=== PATIENT | male | born 1950 | race Caucasian/White ===

== ENCOUNTER 2023-06-27 09:17 | Inpatient (IN) | payer MEDICARE, OTHER, SELFPAY ==
[2023-06-25 17:21] VITALS: BP 173/83
[2023-06-25 17:24] LABS: Glucose - Point of Care 100 mg/dl (70-99)
[2023-06-25 17:33] VITALS: BMI 38.8
[2023-06-25 17:35] VITALS: BP 176/82
[2023-06-25 18:02] LABS: % Basophils 0.9 % (0-2); % Eosinophils 6.2 % (0-6); % Immature Granulocytes 0.4 % (0-0.5); % Lymphocytes 19.9 % (20.5-51.1); % Monocytes 8.6 % (1.7-9.3); Absolute Basophils 0.1 10^3/uL (0-0.2); Absolute Eosinophils 0.4 10^3/uL (0-0.7); Absolute Lymphocytes 1.1 10^3/uL (1.2-3.4); Absolute Monocytes 0.5 10^3/uL (0.1-0.6); Absolute Neutrophils 3.6 10^3/uL (1.4-6.5); Hematocrit 41.7 % (39.0-52.0); Hemoglobin 14.4 g/dL (13.0-18.0); Mean Corp Hgb Conc. 34.5 g/dL (33.0-37.0); Mean Corpuscular Hgb 32.9 pg (27.0-31.0); Mean Corpuscular Volume 95.2 fL (80.0-94.0); Mean Platelet Volume 10.9 fL (7.4-10.4); Nucleated Red Blood Cells % 0 % (-); Platelet Count 161 10^3/uL (130-400); Red Blood Cell Count 4.38 10^6/uL (4.70-6.10); Red Cell Dist. Width 13.2 % (11.5-14.5); White Blood Cell Count 5.7 10^3/uL (4.8-10.8)
[2023-06-25 18:11] VITALS: BP 155/97
--- NOTE | 2023-06-25 18:16 | ED.CVA ---
History of Present Illness
General
Chief Complaint: CVA/TIA Symptoms
Source: patient and family
Exam Limitations: none
Time Seen by Provider: 06/25/23 17:31
Nursing documentation reviewed up to this point in time: agreed with
Onset of Stroke Symptoms
Onset of symptoms known: Yes
Date of onset of symptoms: 06/25/23
Time of onset of symptoms: 16:15
Time pt last seen normal is known: Yes
Date last time pt seen normal: 06/25/23
Time last time pt seen normal: 16:00
Travel History
Have you had any contact with someone who has COVID-19?: No
Do you have any symptoms of coronavirus? Fever > 100 degrees, chills, cough, shortness of breath, sore throat, loss of taste or smell, muscle aches, or headache?: No
History of Present Illness
History of Present Illness:
Pleasant 72-year-old male presents with an episode of left arm flailing. He states that he was going for his daily 1 mile walk today when he got 200-300 yards into the walk he met a friend who happened to be a nurse. He states that he stopped to
talk with her and shortly after initiating conversation his left arm started to flail uncontrollably. He states that it lasted for approximately 10 to 30 seconds and he was unable to control it. His nurse friend advised him to go to the hospital
to get checked out. He was able to ambulate all the way home where he found his who took him to the hospital. He typically takes a baby aspirin daily. He got home today and took a second baby aspirin. He states that his only symptoms that
still reside are failure to fully extend his fourth and fifth digits on his left side. He did have some dizziness while the event was going on but states that that has resolved. He denies chest pain or shortness of breath. He is concerned that he
was not hydrated adequately today. He had a couple coffee in the morning and 16 ounces of Diet Coke prior to his walk. He reports no other issues. Denies any cardiac history though was diagnosed with PACs prior to knee surgery 1 year ago. It was
initially thought that he had atrial fibrillation but when he saw a director instructional material they diagnosed him with PACs. He is not on any anticoagulation. 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 He states he has
never had symptoms on the left.
Review of Systems
Review of Systems
Allergies reviewed?: Yes
All Other Systems: ROS reviewed and negative except as documented in HPI and ROS
Constitutional: Reports no symptoms
EENT: Reports no symptoms
Respiratory: Reports no symptoms
Cardiac: Reports no symptoms
ABD/GI: Reports no symptoms
: Reports no symptoms
Musculoskeletal: Reports no symptoms
Skin: Reports no symptoms
Neurological: Reports weakness (left 4th 5th digits)
Endocrine: Reports no symptoms
Hematologic/Lymphatic: Reports no symptoms
Psychiatric: Reports no symptoms
Phy Exam
General Physical Exam
General Presentation: well appearing and no apparent distress
General Skin: warm and dry
General Habitus: normal
General Mental: alert
General Hydration: appears well hydrated
ENT Exam
ENT Exam: EOMI, pharynx normal, neck supple and normocephalic
Eye Exam
Eye Exam: PERRL, cornea clear and conjunctiva normal
Cardiovascular Exam
Cardiovascular Exam: regular rate/rhythm, no edema, no murmur and normal peripheral pulses
Pulmonary Exam
Pulmonary Exam: lungs clear, no respiratory distress, no rales, no crackles, no rhonchi, no stridor, no wheezing and no cough
Gastrointestinal Exam
Gastrointestinal Exam: normal bowel sounds, non tender, soft, no organomegaly, no pulsatile mass and non distended
Neurological Exam
Neurological Exam: alert, oriented x3, no motor deficits and speech normal
NIH Stroke Score
Level of Consciousness: 0 - Alert
LOC questions: 0-Answers both correctly
LOC Commands: 0-Performs both correctly
Best Gaze: 0-Normal
Visual Judd: 0=Normal, no visual loss
Facial palsy: 0=Normal, symmetrical
Motor - Right Arm: 0=No drift 10 seconds
Motor - Left Arm: 0=No drift 10 seconds
Motor - Right Le-No drift 5 seconds
Motor - Left Le-No drift 5 seconds
Limb Ataxia: 0-Absent
Sensation: 0-Normal
Best Language: 0-No aphasia (, present in the room during the exam agrees)
Dysarthria: 0-Normal
Extinction and Inattention: 0-No abnormality
Total Score:: 0
Musculoskeletal Exam
Musculoskeletal Exam: full ROM and no edema
Skin Exam
Skin Exam: normal color, warm/dry, no rash and no petechia
Psychiatric Exam
Psychiatric Exam: normal mood/affect
Course
Orders/Labs/Results
Orders:
Orders
06/25/23 17:26
CT Head W/o Cont STROKE ALERT Urgent
Reason For Exam: L arm weakness
06/25/23 17:53
CMP [Comprehensive Metabolic Panel] Urgent
Complete Blood Count/With Diff Urgent
Magnesium Urgent
Comment: ADD ON
TSH Urgent
Comment: ADD ON
06/25/23 18:27
Aspirin Chewable [Low Strength Aspirin] 162 mg PO NOW STA
Atorvastatin [Lipitor] 10 mg PO NOW STA
Clopidogrel Bisulfate [Plavix] 300 mg PO NOW STA
06/25/23 18:30
Cardiac Monitoring- Treatment ONCE
0.9% Sodium Chloride 1000 ml [Nss] 1,000 ml IV BOLUS
06/25/23 18:31
Electrocardiogram (*1) Stat
Reason for Study: Other
Other Reason for Exam: neuro symptoms
EKG- Treatment ONCE
06/25/23 18:54
Erythrocyte Sed Rate Urgent
PTT Urgent
Prothrombin Time Urgent
Troponin I Urgent
06/25/23 19:30
Admit/Transfer Patient As Directed
Co-Sign Provider:
Level of Care: Observation services
Assign to:: Telemetry
Physician / Group: Yessi/Hospitalist
Diagnosis: TIA vs CVA vs seizure
Reason for Telemetry: CVA/TIA
Date to Stop Telemetry: 06/28/23
Time to Stop Telemetry: 11:00
06/25/23 19:32
Code Status As Directed
Resuscitation Status: Full Code
06/25/23 20:30
Acetaminophen [Tylenol/Feverall] 650 mg RECTAL Q4HPRN PRN
Acetaminophen [Tylenol] 650 mg PO Q4HPRN PRN
06/25/23 20:30
Add On- LAB Routine
Tests Added?: Mg, TSH
EKG [Electrocardiogram (*1)] Routine
Reason for Study: TIA/Stroke
Case Management Consult ONCE
Case Management Consult: Discharge Planning
Comment: stroke/tia
DIETARY CONSULT Routine
Reason for Consult: stroke/TIA
NEUROLOGY CONSULT Urgent
Consulting Provider: Khanh Castro
Was physician already notified: Yes
Reason for consult: TIA vs CVA vs seizure
Biology Tutor Urgent
EEG Routine Routine
Reason for Exam: complex-partial seizures
MA Lummi Of Barone Wo Routine
Comment:
Reason For Exam: stroke/TIA
Recent pill cam endoscopy?: No
MA Neck With Contrast Routine
Comment:
Reason For Exam: stroke/TIA
Recent pill cam endoscopy?: No
MR Brain Without Contrast Routine
Comment:
Reason For Exam: stroke/TIA
Recent pill cam endoscopy?: No
Activity As Directed
Activity Level: With Assistance
NIH Stroke Scale As Directed
Directions: Per protocol
Comment: every shift and with any change in condition or mental status
Neurological Checks As Directed
Frequency: q4h
Additional Instructions:: q4h x 24h upon admission to the floor, then qshift & with any change in condition
and mental status
Patient Education As Directed
Type: Stroke education packet
Comment: provide to patient and family
Pneumatic Compression Sleeves As Directed
Type: Knee high
Swallow Screening CVA/TIA ONLY As Directed
Comment: NPO until swallowing screening completed
If patient FAILS swallow screening:: NPO, Speech Therapy consult, Aspiration Precautions
If patient PASSES swallow screening, diet:: Cholesterol Lowering
Above diet order entered?: Yes- passed screening
Vital Signs As Directed
Frequency: Per unit guidelines
Ot Eval And Treat Routine
Pt Eval And Treat Routine
Activity Level: With Assistance
DX Deep Vein Thrombosis Video Routine
06/25/23 22:00
Propranolol [Inderal] 20 mg PO TID
Tamsulosin [Flomax] 0.4 mg PO HS
06/26/23 06:00
Basic Metabolic Panel IN AM
Cardiovascular Evaluation IN AM
Complete Blood Count/No Diff IN AM
06/26/23 08:00
Aspirin Low Dose EC [Aspir Low (Enteric Coated)] 81 mg PO DAILY
Cholecalciferol (Vitamin D3) [VITAMIN D3 (cholecalciferol)] 25 mcg PO DAILY
Clopidogrel Bisulfate [Plavix] 75 mg PO DAILY
Cyanocobalamin [Vitamin B-12] 2,500 mcg PO DAILY
06/26/23 18:00
Atorvastatin [Lipitor] 40 mg PO QPM
06/28/23 11:00
DC Protocol for Telemetry ONCE
Abnormal Lab Results
06/25/23 06/25/23
17:23 17:53
RBC 4.38 L 10^6/uL
(4.70-6.10)
MCV 95.2 H fL
(80.0-94.0)
MCH 32.9 H pg
(27.0-31.0)
MPV 10.9 H fL
(7.4-10.4)
Absolute Lymphs (auto) 1.1 L 10^3/uL
(1.2-3.4)
Lymphocytes % 19.9 L %
(20.5-51.1)
Eosinophils % 6.2 H %
(0-6)
BUN 21 H mg/dl
(9-20)
Glucose 107 H mg/dl
(70-99)
POC Glucose 100 H mg/dl
(70-99)
06/25/23 17:53
06/25/23 17:53
Vital Signs
Initial and Last Documented VS:
Initial Vital Signs
Temp Pulse Resp BP Pulse Ox
98.3 F 64 16 173/83 96
06/25/23 17:21 06/25/23 17:21 06/25/23 17:21 06/25/23 17:21 06/25/23 17:21
Last Documented Vital Signs
Temp Pulse Resp BP Pulse Ox
97.4 F 64 18 138/78 96
06/25/23 23:15 06/25/23 23:15 06/25/23 23:15 06/25/23 23:15 06/25/23 23:15
MDM/Problems Addressed
Differential Diagnosis Includes:
TIA, CVA, seizure, focal seizure, intention tremor, dehydration
MDM/Problems Addressed:
72-year-old male presents with history of flailing arm now presents with muscle weakness in his left hand
Chronic conditions affecting care:
Right arm resting intention tremor
*Radiology
Radiology exam reviewed: radiology read reviewed
*Pulse Oximetry
Patient hypoxic: no
*Critical Care Note
Total Time (30-74mins, 75-104mins- exclusive of procedures): 30
comment:
Critical care statement: A total of 30 minutes of critical care time was provided for this patient. This time is separate from time utilized to perform the aforementioned documented procedures. Aggregate critical care time includes only time
during which I was engaged in work directly related to the patient's care, as described above, whether at the bedside or elsewhere in the Emergency Department.
Patient Management
Social determinants of health affecting care: Strong social support
Discussion with other providers: Hospitalist, [employer] (Neurology) and Radiologist ([place] [place] text)
Update Note
Update Note:
06/25/2023 1805 PM: Spoke with Dr. Castro, neurology. Reviewed CT scan findings. He will request patient be admitted with aspirin Plavix and Lipitor. Discussed this plan with the hospitalist who is in agreement.
ED Attending Note
-
Portions of this chart may have been created with voice recognition software.� Occasional wrong word or��sound alike� substitutions may have occurred due to the inherent limitations of voice recognition software.
Discharge Plan
Departure
Patient Disposition: Admit
Date of Disposition: 06/25/23
Time of Disposition: 18:31
Admit to: IVU
Presentation/result/management discussed w/ accepting MD/DO: Hospitalist
Discharge Problem:
Possible TIA
Interventions
Interventions:
*Risk Screen - Suicide Last Done: 06/25/23 17:32
*General Assessment Last Done: 06/25/23 17:33
*Neglect/Abuse Screening Last Done: 06/25/23 17:32
ED- Fall Risk Assessment Last Done: 06/25/23 20:27
*ED COVID-19 Vaccine History Last Done: 06/25/23 17:34
*Nursing Disposition Last Done: 06/25/23 20:27
ED- Pulmonary Assessment Last Done: 06/25/23 19:10
ED- Neurological Assessment Last Done: 06/25/23 19:10
ED- Cardiac Assessment Last Done: 06/25/23 19:10
ED Swallowing Screen Last Done: 06/25/23 18:00
Discharge Date and Time
Discharge Date/Time: 06/25/23 20:27
[2023-06-25 18:30] LABS: ALT (SGPT) 25 U/L (0-50); AST (SGOT) 26 U/L (17-59); Alkaline Phosphatase 60 U/L (38-126); Blood Urea Nitrogen 21 mg/dl (9-20); Calcium 8.9 mg/dl (8.4-10.2); Carbon Dioxide 25 mmol/L (22-30); Chloride 107 mmol/L (98-107); Estimated Creatinine Clearance 76 ml/min; Glucose 107 mg/dl (70-99); Potassium 4.1 mmol/L (3.5-5.1); Sodium 136 mmol/L (135-145); Total Bilirubin 0.5 mg/dl (0.2-1.3); Total Protein 6.4 g/dl (6.3-8.2); eGFR > 60.00
[2023-06-25] MEDS: PLAVIX 300 MG PO (18:37)
[2023-06-25] MEDS: LOW STRENGTH ASPIRIN 162 MG PO (18:37)
[2023-06-25] MEDS: LIPITOR 10 MG PO (18:37)
[2023-06-25] MEDS: NSS 1000 IV (18:38)
[2023-06-25 19:00] VITALS: BP 161/90
--- NOTE | 2023-06-25 19:11 | HPS.HSE ---
Family Physician
-
Family Physician: Armani Gonzalez
Chief Complaint
-
left upper extremity sporadic movements and hand weakness
History of Present Illness
The patient is a 72 yo right-handed gentleman with PMH significant for HTN, osteoarthritis, ANNA, right hand essential tremor (has not seen Neurology, treated by PCP with Propranolol), BMI 38.7, presents to the ED due to acute onset 415 pm of left
upper extremity sporadic movements associated with hand numbness mostly in the 4th and 5th finger, occurred while he was taking a walk with his neighbor; sensation that his hand was stuck in position and could not bend, and weakness of the 4th and
5th finger. He denies motor weakness anywhere else, and symptoms have improved in the ED to the point where they are almost gone other than weakness in 4th and 5th finger and small amount of hand numbness. No facial droop, no speech issues, no
swallowing issues, no MAK, no vision changes, no ataxia. He takes daily baby aspirin which he took prior to arrival. No CP, no SOB, no lightheadedness, no dizzines, no bleeding.
Medical History
Past Medical History
Past Medical History: Reports HTN and Other (OA, ANNA, benign essential tremor RUE)
Past Surgical History: Reports Orthopedic (left knee) and Other (deviated septum)
Social History
Tobacco: Non-smoker
Alcohol: Occasional
Drug: None
Personal:
Living: With Family
Family History
Family History: CAD (brother early CABG in his 40s)
Allergies / Home Medications
Allergies reflects when Allergies were last updated in [facility].
Home Medications with original date entered in [facility]
Allergy/Medication List:
Allergies
Allergy/AdvReac Type Severity Reaction Status Date / Time
pollen extracts Allergy Congestion, Verified 06/25/23 17:32
Watery eyes
Home Medications
cholecalciferol (vitamin D3) 25 mcg (1,000 unit) capsule (Vitamin D3) 25 mcg PO DAILY 02/17/22
cyanocobalamin (vitamin B-12) 2,500 mcg tablet 2,500 mcg PO DAILY 02/17/22
fluticasone propionate 50 mcg/actuation nasal spray,suspension (Flonase Allergy Relief) 2 spray intranasal DAILY 02/17/22
glucosamine sulf dipot chlr,msm,chond 550 mg-C 30 mg-nino 1 mg capsule (Glucosamine Chondroitin) 1 cap PO DAILY 02/17/22
loratadine 10 mg tablet (Claritin) 10 mg PO DAILY 02/17/22
magnesium citrate 125 mg capsule 250 mg PO DAILY 02/17/22
bqehxcuoeytm-nsumijbe-dprvsj tablet (Multivitamin 50 Plus tablet) 1 tab PO .3X WEEKLY 02/17/22
omega 7-cbn-yrl-fish oil 1,000 mg (120 mg-180 mg) capsule (Fish Oil) 1 cap PO DAILY 02/17/22
propranolol 20 mg tablet 20 mg PO TID 02/17/22
testosterone 1 % (25 mg/2.5 gram) transdermal gel packet (AndroGel) 1 packet transdermal DAILY 02/17/22
zinc acetate 50 mg (zinc) capsule 50 mg PO DAILY 02/17/22
aspirin 81 mg tablet,delayed release 81 mg PO DAILY 06/25/23
tamsulosin 0.4 mg capsule 0.4 mg PO HS 06/25/23
Review of Systems
-
A 12 point ROS was completed and negative except as noted: Yes
Physical Exam
Vital Signs
Vital Signs
Temp Pulse Resp BP Pulse Ox
98.3 F 63 10 161/90 95
06/25/23 17:21 06/25/23 19:00 06/25/23 19:00 06/25/23 19:00 06/25/23 19:00
Physical Exam
General: Well Developed, Well Nourished, No Apparent Distress, Comfortable and Conversant
HEENT: NormoCephalic, Anicteric and Moist mucous membranes
Respiratory: Clear
Cardiac: S1/S2 and Regular Rhythm
GI: Soft, Non Tender and Non Distended
Musculoskeletal: No Clubbing, No Cyanosis and No Edema
Skin: Warm and Dry
Neuro: AO x 3, Cranial Nerves Intact, No Sensory Deficits and Other (left hand 4/5th fingers weaker than other fingers 3/5)
Psych: Calm
Laboratory Results
-
06/25/23 17:53
06/25/23 17:53
Laboratory Results
Total Bilirubin 0.5 mg/dl (0.2-1.3) 06/25/23 17:53
AST 26 U/L (17-59) 06/25/23 17:53
ALT 25 U/L (0-50) 06/25/23 17:53
Alkaline Phosphatase 60 U/L (38-126) 06/25/23 17:53
Data Reviewed
-
CT Scan: Report Reviewed by me (CT head NAD)
Impression/Plan
-
IMPRESSION:
#Concern for TIA vs CVA, discussed differential with Neurology including hemiballism, limb-shaking TIA vs CVA vs seizure, persistent weakness 4th and 5th digits left hand
-Stroke work-up - MRI head , MRA head and neck, permissive hypertension to keep less than 220/120
-IF patient has repeat episode tonight, THEN get STAT CTA head and neck to rule out vascular issue/stenosis, and give Keppra 2000 mg IV loading dose, and page HO and Neurology
-Neuro checks, Neuro consultation
-aspirin, Plavix, statin per Neuro recs
-EEG
#Essential tremor
-continue propranolol
#Morbid obesity BMI 38.7
DVT proph PCSs
Full Code
[2023-06-25 19:13] LABS: APTT 27.7 Sec (23.4-35.0)
[2023-06-25 19:18] LABS: Erythrocyte Sed Rate 8 mm/hour (0-20)
[2023-06-25 19:39] LABS: Troponin I < 0.012 ng/ml
[2023-06-25 20:35] VITALS: BP 165/88
[2023-06-25 20:52] VITALS: BMI 34.3
--- NOTE | 2023-06-25 21:00 | PTCARENOTE ---
Pt transferred from ED. Pt ambulated into room with assistance. Pt AAOX3, able to make needs known, VSS, NIH 1. Pt oriented to unit, call de jesus within reach, bed in lowest position. Will continue with current plan.
[2023-06-25 21:14] LABS: Magnesium 2.2 mg/dl (1.6-2.3)
[2023-06-25 21:57] LABS: TSH 1.63 uIU/ml (0.47-4.68)
[2023-06-25] MEDS: INDERAL 20 MG PO (22:03)
[2023-06-25] MEDS: FLOMAX 0.400000000000000022 MG PO (22:03)
[2023-06-25 23:15] VITALS: BP 138/78
[2023-06-26] VITALS (8 sets, daily range): BP systolic 132–168; BP diastolic 76–85; PULSE 56; O2SAT 97–98
[2023-06-26 08:14] LABS: Hematocrit 40.9 % (39.0-52.0); Mean Corp Hgb Conc. 34.2 g/dL (33.0-37.0); Mean Corpuscular Hgb 32.3 pg (27.0-31.0); Mean Corpuscular Volume 94.2 fL (80.0-94.0); Mean Platelet Volume 11.1 fL (7.4-10.4); Platelet Count 147 10^3/uL (130-400); Red Blood Cell Count 4.34 10^6/uL (4.70-6.10); Red Cell Dist. Width 13.3 % (11.5-14.5); White Blood Cell Count 4.5 10^3/uL (4.8-10.8)
--- NOTE | 2023-06-26 08:32 | CON.NEURO4 ---
Addendum entered and electronically signed by Khanh Castro MD 06/26/23 14:58:
I saw and evaluated the patient I reviewed the note by Karen Brown agree to find the following comments:
72-year-old male with a past medical history of hypertension, obesity, essential tremor presented to hospital with an episode of left arm flailing movements which happened while talking to a neighbor on a walk yesterday late afternoon around 4 PM.
Patient had been in his normal state of health before this with no recent injuries head or neck trauma. He does take intermittent aspirin for musculoskeletal pains.
Initially he felt that the left arm seemed to have uncontrolled movements flailing about lasting a brief period of time which led him to present to the ER where he was noted to have left finger numbness in digits 4 and 5 along with some weakness of
the digits on the left hand, had improved and NIH stroke scale of 0, CT head noncontrast did not show any acute abnormalities. Patient felt that he had pretty much resolved symptoms by this morning.
This morning after session with physical therapy it was noted the patient developed new left arm weakness the patient also described a kaleidoscope vision change, had felt that he seemed to have some speech abnormality and possibly some facial
asymmetry as well. No significant hypotension with this episode.
Patient reports a one-time history of a migraine visual aura but otherwise no history of migraine headaches or other aura symptoms. He has no history of previous stroke or TIA. His brother had had heart disease at an early age less than 50
requiring CABG.
Neurologic examination shows some left arm downward drift and shoulder abduction arm flexion weakness 4/5, ataxia of the left arm finger-nose testing along with mild sensory change on the left arm. No significant facial asymmetry or dysarthria is
appreciated. Visual judd are normal extraocular moods are normal and left leg strength 5/5 hip flexion.
MRI of the brain demonstrates scattered acute ischemic stroke in the right MCA territory including the right occipital lobe, right basal ganglia, and right frontal and parietal cortex notably near motor area of hand/arm, no hemorrhage.
MRA of the head and neck demonstrates no intracranial occlusion or significant intracranial stenosis there is right proximal ICA stenosis appears greater than 50% less than 90%.
Assessment: Patient's initial episode of flailing left arm movements most likely represented either ataxia and clumsy movements versus a limb shaking TIA/stroke which represents a rare manifestation with so-called positive symptoms of stroke/TIA
rather than negative symptoms (paralysis or weakness.) He had reemergence of stroke symptoms this morning with left arm weakness which most likely represents the natural history of this ischemic stroke, occasionally they are fluctuating symptoms
without maximal symptoms at onset.
Given the patient had a notable duration of left hand and finger weakness observable by ER as well as internal medicine admitting physician this was likely the beginning of ischemic stroke with subsequent improvement, when he had worsening stroke
symptoms today I did not feel he would be an appropriate candidate for TNK/thrombolytics given that the stroke had most likely already occurred and he would be outside the traditional 4.5 hour time window for thrombolytic, I felt that the risks of
TNK intracranial hemorrhage weighed the potential benefits.
Very likely symptomatic right carotid stenosis given the information we have so far.
Recommendations
-Given 1000 ml normal saline with worsening symptoms this morning, would hold propranolol until tomorrow morning
-Continue aspirin and clopidogrel for 4 weeks total
-Atorvastatin 40 mg daily
-Neurologic checks and NIH scales
-Vascular surgery consultation for suspected symptomatic right carotid stenosis
-Given patient had some worsening of symptoms this morning I feel that earliest acceptable date for carotid intervention would be 06/28
-Stroke educational materials
-Goal normoglycemia
-TTE and cardiac telemetry
Total time = 90 minutes
Will continue to follow
Original Note:
Documented by User: Karen Bruno NP 06/26/23 13:56
Consultation - Neurology 4
-
CONSULTING PHYSICIAN: Alexa Castro MD
REFERRING PHYSICIAN: Hospitalists/Dr. Dickson
DICTATED BY: TRICIA Gardner
DATE/TIME OF REQUEST: 06/25/23
DATE/TIME OF CONSULTATION: 06/26/23
Reason for Consultation: CVA, concern for seizure
History of Present Illness:
This is a 72-year-old right-handed male who has presented to the hospital on 06/25/23 with report of left arm flailing. Patient reports feeling at his baseline yesterday (06/25/23). Around 1600 he went out for his daily walk and a few minutes into it
he ran into a neighbor and stopped to talk. At that time he reports acute onset of left upper extremity 'flailing' movements, generally feeling like he could not control his LUE movements, slight dizziness, and numbness/weakness in his left hand 4th
and 5th fingers. His friend told him he should go to the ER for evaluation and he was able to walk home. He is taking aspirin 81mg daily, and upon returning home he took an additional aspirin 81mg. On arrival in the ER, CT head was obtained and is
negative for any acute abnormalities. Patient's symptoms had improved with the exception of subjective L hand finger weakness and numbness. NIHSS was 0. He was not a candidate for TNK/IAT due to NIHSS<6, rapidly improving symptoms. He was loaded
with Plavix and given two additional aspirin 81mg tablets to total a full dose for the day. This morning (06/26/23), patient reports initially feeling almost at his baseline. While working with PT/OT around 0915, patient reported to staff that his
symptoms were 'happening again.' He reported LUE increased weakness, and PT noted decreased left hand 3rd, 4th, and 5th digit extension. He was evaluated by Neurology within minutes and NIHSS was noted to be a 3 for LUE drift, LUE ataxia, and left
hand subjective numbness. MRI brain and MRA head/neck were obtained immediately following this event and demonstrate multiple scattered small acute/subacute right cerebral hemisphere ischemic infarcts, in addition to 70% left ICA stenosis.
Currently, patient feels slightly improved but his symptoms are ongoing. He denies any headache, dizziness, loss of vision, speech/swallow difficulty, nausea, chest pain, palpitations, and shortness of breath. He reports seeing a kaleidoscope-like
effect in bilateral vision this morning, this has now resolved. He has a distant history of an ocular migraine once 20 years ago. He denies any history of TIA, stroke, or events like this in the past.
Past Medical History: HTN, ANNA, right hand essential tremor, melanoma, CAD, PVCs, left knee osteoarthritis
Surgical History: L TKR, deviated septum repair, lymph node and melanoma removal
Family History: Brother- CABG age 48.
Social History: Denies tobacco and illicit drug use. Occasional alcohol. Lives with . 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
Allergies: Pollen extracts.
Home Medications: See below.
Review of Symptoms:
Patient denies any fever, headache, chest pain, shortness of breath, GI or symptoms.
�Per the HPI.�All systems are reviewed negative except above.
Physical Exam:
The patient is afebrile, abdomen is nondistended, breathing is unlabored, skin is warm and dry, no edema.
NIH Stroke Scale:
I performed the NIH stroke scale on the patient on 06/26/23 at 0930 . The patient scored 3 points on the NIH stroke scale assessment, which were assigned as follows: See below.
Neurologic Examination:
The patient is awake, alert and oriented x 3. He is able to follow commands and answer questions appropriately. There is no aphasia or dysarthria. On cranial nerve assessment, pupils are 3 mm bilateral, round and reactive to light and
accommodation. Visual judd are full. Extraocular movements are intact. Facial sensations are intact and bilaterally symmetrical, there is no facial asymmetry. Hearing is intact bilaterally to normal conversation volume. Tongue palate and uvula are
midline. Motor strengths are 5/5 right upper, 4/5 left upper, and 5/5 bilateral lower extremities on medical research [place] scale. There is drift in the LUE. No involuntary movement noted. Babinski is absent bilaterally. There was no extinction
noted on double simultaneous stimulation. Coordination is ataxic by finger to nose in the LUE.
Lab Results: See below.
Neuro Imaging:
1. CT Head 06/26/23: No acute intracranial abnormality noted. ASPECTS Score: 10.
2. MRI brain 06/26/23: Multiple scattered small foci of acute to subacute infarction in the right cerebral hemisphere as described above. No evidence for associated mass effect or hemorrhage. Mild to moderate diffuse atrophy
3. MRA COW 06/26/23: MR angiography of the intracranial circulation is within normal limits.
4. MRA Neck 06/26/23: Focal narrowing at the junction of the right carotid bulb and proximal right internal carotid artery, with measured diameter reduction of 70%. Consider correlation with cerebrovascular ultrasound exam.
No significant narrowing involving the left carotid bulb or proximal left internal carotid artery.
Differentials for the patient's presentation include:
1. Acute/subacute small scattered ischemic infarcts throughout the right cerebral hemisphere. Etiology likely HTN and symptomatic L ICA stenosis.
2. Left ICA 70% stenosis, likely symptomatic.
3. Low concern for partial seizure causing LUE 'flailing,' likely chorea in the setting of acute stroke.
Patient has the following risk factors for their symptoms: L ICA 70% stenosis
IV Tenecteplase/IAT candidacy: Not a candidate due to NIHSS<6, no LVO.
Recommendations:
-Continue DAPT with aspirin 81mg and clopidogrel 75mg daily x21 days. After 21 days, discontinue Plavix and continue aspirin 81mg daily only, indefinitely.
-Vascular Surgery consult placed for evaluation of L ICA stenosis. If carotid surgery is indicated, would wait at least until 06/28/23 before intervening.
-Permissive hypertension until 1615 today, then goal normotension.
-TTE ordered/pending.
-LDL goal <70. LDL is 116. Continue newly initiated atorvastatin 40mg daily.
-Goal normoglycemia, hbA1c is pending.
-NIHSS and neurological checks per unit guidelines.
-PT/OT/ST evaluations.
-DVT prophylaxis.
-Contact our Neurology service with any questions/concerns. Follow-up with Neurology as an outpatient, may see the [employer] or one of the physicians.
Discussed patient care with: Dr. Castro, the patient
Vital Signs and Labs
-
Vital Signs and Labs:
Vital Signs
Temp Pulse Resp BP Pulse Ox
97.9 F 60 20 160/85 94
06/26/23 11:30 06/26/23 11:30 06/26/23 11:30 06/26/23 11:30 06/26/23 11:30
Lab Results
06/26/23 07:05
06/26/23 07:05
PT 13.0 Sec (11.4-14.6) 06/25/23 18:54
INR 1.00 06/25/23 18:54
APTT 27.7 Sec (23.4-35.0) 06/25/23 18:54
Sodium 137 mmol/L (135-145) 06/26/23 07:05
Potassium 4.1 mmol/L (3.5-5.1) 06/26/23 07:05
BUN 17 mg/dl (9-20) 06/26/23 07:05
Glucose 101 mg/dl (70-99) H 06/26/23 07:05
Calcium 8.8 mg/dl (8.4-10.2) 06/26/23 07:05
LDL Cholesterol, Calc 116 mg/dl 06/26/23 07:05
Medications
-
Active Medications
Generic Name Dose Route Start Last Admin
Trade Name Freq PRN Reason Stop Dose Admin
Acetaminophen 650 mg 06/25/23 20:30
Acetaminophen 650 Mg Rectal Suppository RECTAL 07/23/23 20:29
Q4HPRN PRN
MAK, mild pain, or temp >100.4F
Acetaminophen 650 mg 06/25/23 20:30
Acetaminophen 325 Mg Tablet PO 07/23/23 20:29
Q4HPRN PRN
MAK, mild pain, or temp >100.4F
Aspirin 81 mg 06/26/23 08:00 06/26/23 09:38
Aspirin 81 Mg (Enteric Coated) Tablet PO 07/24/23 07:59 81 mg
DAILY BALA Administration
Atorvastatin Calcium 40 mg 06/26/23 18:00
Atorvastatin (Lipitor) 40 Mg Tablet PO 07/24/23 17:59
QPM BALA
Cholecalciferol 25 mcg 06/26/23 08:00 06/26/23 09:39
Cholecalciferol (Vitamin D3) 25 Mcg Tablet (1,000 Units) PO 07/24/23 07:59 25 mcg
DAILY BALA Administration
Clopidogrel Bisulfate 75 mg 06/26/23 08:00 06/26/23 09:38
Clopidogrel 75 Mg Tablet PO 07/24/23 07:59 75 mg
DAILY BALA Administration
Cyanocobalamin 2,500 mcg 06/26/23 08:00 06/26/23 09:39
Cyanocobalamin 1,000 Mcg Tablet PO 07/24/23 07:59 2,500 mcg
DAILY BALA Administration
Propranolol HCl 20 mg 06/25/23 22:00 06/26/23 09:38
Propranolol 20 Mg Regular Release Tablet PO 07/23/23 21:59 Not Given
TID BALA
Sodium Chloride 0 flush 06/25/23 21:00
Sodium Chloride 0.9% (Flush) Syringe IV 07/23/23 20:59
PER PROTOCOL BALA
Tamsulosin HCl 0.4 mg 06/25/23 22:00 06/25/23 22:03
Tamsulosin 0.4 Mg Capsule PO 07/23/23 21:59 0.4 mg
HS BALA Administration
Home Medications
Medication Instructions Recorded
cholecalciferol (vitamin D3) 25 25 mcg PO DAILY 02/17/22
mcg (1,000 unit) capsule (Vitamin
D3)
cyanocobalamin (vitamin B-12) 2,500 mcg PO DAILY 02/17/22
2,500 mcg tablet
fluticasone propionate 50 2 spray intranasal DAILY 02/17/22
mcg/actuation nasal
spray,suspension (Flonase Allergy
Relief)
glucosamine sulf dipot 1 cap PO DAILY 02/17/22
chlr,msm,chond 550 mg-C 30 mg-nino
1 mg capsule (Glucosamine
Chondroitin)
loratadine 10 mg tablet (Claritin) 10 mg PO DAILY 02/17/22
magnesium citrate 125 mg capsule 250 mg PO DAILY 02/17/22
khizntdnrvmn-psntumci-ckyahk 1 tab PO .3X WEEKLY 02/17/22
tablet (Multivitamin 50 Plus
tablet)
omega 7-mex-zrg-fish oil 1,000 mg 1 cap PO DAILY 02/17/22
(120 mg-180 mg) capsule (Fish Oil)
propranolol 20 mg tablet 20 mg PO TID 02/17/22
testosterone 1 % (25 mg/2.5 gram) 1 packet transdermal DAILY 02/17/22
transdermal gel packet (AndroGel)
zinc acetate 50 mg (zinc) capsule 50 mg PO DAILY 02/17/22
aspirin 81 mg tablet,delayed 81 mg PO DAILY 06/25/23
release
tamsulosin 0.4 mg capsule 0.4 mg PO HS 06/25/23
NIH Stroke Score
Subsequent NIH Scale
Date of Subsequent NIH Scale: 06/26/23
Time of Subsequent NIH Scale: 09:30
NIH Stroke Score
Level of Consciousness: 0 - Alert
LOC Questions: 0-Answers both correctly
LOC Commands: 0-Performs both correctly
Best Horizontal Gaze: 0-Normal
Visual Judd: 0=Normal, no visual loss
Facial Palsy: 0=Normal, symmetrical
Motor - Right Arm: 0=No drift 10 seconds
Motor - Left Arm: 1=Drift < 10 seconds
Motor - Right Le-No drift 5 seconds
Motor - Left Le-No drift 5 seconds
Limb Ataxia: 1-Present in one limb
Sensation: 1-Mild loss
Best Language: 0-No aphasia
Dysarthria: 0-Normal
Extinction and Inattention: 0-No abnormality
Total Score:: 3

Documented by User: Khanh Castro MD 06/26/23 14:40
NIH Stroke Score
NIH Stroke Score
Total Score:: 3
[2023-06-26 08:49] LABS: Blood Urea Nitrogen 17 mg/dl (9-20); Calcium 8.8 mg/dl (8.4-10.2); Carbon Dioxide 25 mmol/L (22-30); Chloride 104 mmol/L (98-107); Estimated Creatinine Clearance 111 ml/min; Glucose 101 mg/dl (70-99); HDL Cholesterol 50 mg/dl; LDL Cholesterol, Calculated 116 mg/dl; Potassium 4.1 mmol/L (3.5-5.1); Sodium 137 mmol/L (135-145); Total Cholesterol 192 mg/dl (50-199); Triglyceride 130 mg/dl (10-149); Very Low Density Lipoprotein 26 mg/dl (0-30); eGFR > 60.00
[2023-06-26] MEDS: PLAVIX 75 MG PO (09:38)
[2023-06-26] MEDS: ASPIR LOW (ENTERIC COATED) 81 MG PO (09:38)
[2023-06-26] MEDS: INDERAL PO (09:38)
[2023-06-26] MEDS: VITAMIN D3 (cholecalciferol) 25 MCG PO (09:39)
[2023-06-26] MEDS: VITAMIN B-12 2500 MCG PO (09:39)
--- NOTE | 2023-06-26 10:30 | W.PN.HOSP.TC ---
Today's Communication/Plan
-
.
Assessment / Plan
Assessment / Plan
Physical Exam
-
General: Well Developed and No Apparent Distress
HEENT: Normocephalic, Atraumatic, Moist Mucous Membranes.
Respiratory: Clear to Auscultation
Cardiac: Regular Rhythm and S1/S2; Negative Murmur, Rub or Gallop
GI: Soft, Nontender, Nondistended and Normal Bowel Sounds.
Rectal: No rectal bleeding noted.
Musculoskeletal: No Clubbing, No Cyanosis and No Edema
Skin: Negative Rash
Neuro: Awake, Alert, Oriented, AO x 3 and Nonfocal/Grossly Intact
Psych: Calm
# Left upper extremity weakness
Sudden in onset
Concern for TIA vs CVA, discussed differential with Neurology including cervical radiculopathy, TIA vs CVA vs seizure
CT head negative
Known Cervical spine OA
we can also image his spine
-Stroke work-up - MRI head , MRA head and neck, permissive hypertension to keep less than 220/120
-aspirin, Plavix, statin per Neuro recs
-EEG
- Appreciate neurology input
#Essential tremor
-continue propranolol
#Morbid obesity BMI 38.7
DVT proph PCSs
Full Code
Total time spent to see the patient, examine the patient on the floor, review data and lab results, discuss treatment plan with patient and nursing staff around 55 minutes
Anticipated Discharge: Within 24 hours
Subjective/Interval History
-
Date of Service: June 26, 2023
Objective Data
-
Labs:
Laboratory Results
06/26/23
07:05
WBC 4.5 L
Hgb 14.0
Hct 40.9
Plt Count 147
Sodium 137
Potassium 4.1
Chloride 104
Carbon Dioxide 25
BUN 17
Creatinine 0.8
Glucose 101 H
Calcium 8.8
Vital Signs:
Vital Signs
Temp Pulse Resp BP Pulse Ox
98.2 F 50 20 150/79 97
06/26/23 07:30 06/26/23 07:30 06/26/23 07:30 06/26/23 07:30 06/26/23 07:30
I&O
06/25/23 06/26/23 06/27/23
06:59 06:59 06:59
Intake Total 480 / 480
Balance 480 / 480
[2023-06-26] MEDS: NSS 1000 IV (12:03)
--- NOTE | 2023-06-26 13:59 | CON.VAS ---
Addendum entered and electronically signed by Yeyo Santillan MD 06/26/23 15:33:
Seen and examined with NAM Sheehan. Agree with findings as noted below. Agree with history as noted, with the exception that patient and his to me denied any history of coronary artery disease or any coronary interventions. No prior history of
CVAs. No prior history of strokes. However presented on 06/25/2023 (yesterday) with symptoms as noted below. Left upper extremity weakness. He noted this morning that his hand strength had improved he was able to straighten out his fingers and
hand and hold it upright. However this morning during physical therapy he noted worsening of the left upper extremity weakness again. Patient denies any dysarthric speech or prior unilateral numbness or weakness antecedent to this event, and
denies any amaurosis. His exam is consistent with findings of the neurologic note. Left hand slight weakness. Other neurologic findings as noted but no gross motor abnormalities aside from that. Drift in the left upper extremity noted. 2+
palpable carotid, upper extremity radial, bilateral lower extremity pedal pulses palpable.
MRI images reviewed. Reconstructed images appear to demonstrate right carotid bulb/proximal ICA focal napkin ring like stenosis. But I find MRA to be inferior to CT angiogram in terms of plaque stenosis determination.
MRI brain demonstrates multiple scattered small foci of acute to subacute infarction in the right cerebral hemisphere.
Plan/ Symptomatic right carotid artery stenosis. Recommend revascularization (primarily carotid endarterectomy, or secondarily carotid stenting likely TCAR). Discussed with patient briefly as he was being transported to another test. I then
discussed as per his request with his family who was in his room extensively. Discussed recommendations for revascularization based on symptomatic carotid stenosis status. Discussed my recommendations for enhanced imaging with CT angiogram as I
feel this is a better test for assessing the carotid stenosis, and plaque morphology, and for surgical/stenting planning. Discussed also baseline carotid duplex. I discussed with neurologist and they recommended waiting at least 48 hours (so at
least until Monday) prior to revascularization. Therefore likely will plan right carotid endarterectomy Monday or . I did discuss with patient's family the procedure briefly. I also discussed risks including but not limited to
bleeding, infections, cardiac complications/[place], cranial nerve injury, stroke (in the symptomatic setting 2 to 3%). I will return to talk to the patient likely tomorrow once he is completed his CT scan imaging.
Original Note:
Consultation
Consultation Request
Date/Time Consultation Performed: 06/26/23 1400
Requesting Provider: Khanh Castro MD
Performing Provider: Keyona Sheehan, ASSOCIATE PROFESSOR OF GEOGRAPHY-C for Yeyo Santillan MD
Reason for Consultation: Symptomatic carotid stenosis
Medical History
-
Chief Complaint: Left upper extremity weakness
History of Present Illness:
This is a 72-year-old right-handed male with significant past medical history for CAD, hypertension, sleep apnea, left knee osteoarthritis, and right hand essential tremor who presented to the hospital on 06/25/2023 reporting left upper extremity
weakness. Patient states he was at his baseline health until roughly 1600 on his daily walk when he noticed an acute onset of left upper extremity weakness, which he described as 'arm flailing. ' Left upper extremity weakness was accompanied by a
sensation of lightheadedness prompting patient to walk the quarter mile back to his home. When his left upper extremity weakness persisted with continued intermittent lightheadedness and sensation of possibly losing consciousness he decided to seek
urgent evaluation at our ER. Patient also endorses experiencing a worsening in symptomatology this morning (06/26/23) during his physical therapy session around roughly 0915. He reported worsening in his left upper extremity weakness and that staff
noted a facial droop. He reports that his worsening symptoms this morning resolved rather quickly, but he is now left with continued weakness at left hand digits 3 through 5, left extremity drift, and a mild left upper extremity ataxia. He denies
continued facial droop or aphasia, dysarthria, and dysphagia. MRI brain and MRA head/neck were obtained this AM following today's event, which demonstrates multiple scattered small acute/subacute right cerebral hemisphere ischemic infarcts, in
addition to 70% right ICA stenosis. Vascular surgery has been consulted for symptomatic carotid stenosis. Currently, patient feels slightly improved but his symptoms are ongoing. He denies any headache, dizziness, loss of vision, nausea, chest
pain, palpitations, and shortness of breath. He denies any history of TIA, stroke, or events like this in the past. He denies a previous history of vascular surgery interventions.
Past Medical History
Past Medical History: CAD, HTN and Other (Obstructive sleep apnea, right hand essential tremor, PVCs, left knee osteoarthritis)
Past Surgical History: Orthopedic (Left total knee replacement, deviated septum repair, lymph node and melanoma removal)
Social History
Tobacco: Non-Smoker
Alcohol: Occasional
Drug: None
Personal:
Living: With Family
Allergies / Home Medications
Allergy/AdvReac Type Severity Reaction Status Date / Time
pollen extracts Allergy Congestion, Verified 06/25/23 17:32
Watery eyes
Medication Instructions Recorded Confirmed Type
cholecalciferol (vitamin D3) 25 25 mcg PO DAILY 02/17/22 06/25/23 History
mcg (1,000 unit) capsule (Vitamin
D3)
cyanocobalamin (vitamin B-12) 2,500 mcg PO DAILY 02/17/22 06/25/23 History
2,500 mcg tablet
fluticasone propionate 50 2 spray intranasal DAILY 02/17/22 06/25/23 History
mcg/actuation nasal
spray,suspension (Flonase Allergy
Relief)
glucosamine sulf dipot 1 cap PO DAILY 02/17/22 06/25/23 History
chlr,msm,chond 550 mg-C 30 mg-nino
1 mg capsule (Glucosamine
Chondroitin)
loratadine 10 mg tablet (Claritin) 10 mg PO DAILY 02/17/22 06/25/23 History
magnesium citrate 125 mg capsule 250 mg PO DAILY 02/17/22 06/25/23 History
huswepazitbg-cdpicxiz-fmslhh 1 tab PO .3X WEEKLY 02/17/22 06/25/23 History
tablet (Multivitamin 50 Plus
tablet)
omega 8-rvm-bmw-fish oil 1,000 mg 1 cap PO DAILY 02/17/22 06/25/23 History
(120 mg-180 mg) capsule (Fish Oil)
propranolol 20 mg tablet 20 mg PO TID 02/17/22 06/25/23 History
testosterone 1 % (25 mg/2.5 gram) 1 packet transdermal DAILY 02/17/22 06/25/23 History
transdermal gel packet (AndroGel)
zinc acetate 50 mg (zinc) capsule 50 mg PO DAILY 02/17/22 06/25/23 History
aspirin 81 mg tablet,delayed 81 mg PO DAILY 06/25/23 06/25/23 History
release
tamsulosin 0.4 mg capsule 0.4 mg PO HS 06/25/23 06/25/23 History
Review of Systems
-
History Source: Patient
Constitutional: Denies No Symptoms
EENT: Denies No Symptoms
Respiratory: Denies No Symptoms
Cardiac: Denies No Symptoms
Vascular: Denies Leg Pain / Claudication
Abdomen/GI: Denies No Symptoms
: Denies No Symptoms
Musculoskeletal: Denies No Symptoms
Skin: Denies No Symptoms
Neurological: Reports Other (Left upper extremity weakness, drift, and ataxia)
Endocrine: Denies No Symptoms
Physical Exam
Vital Signs
Temp Pulse Resp BP Pulse Ox
97.9 F 60 20 160/85 94
06/26/23 11:30 06/26/23 11:30 06/26/23 11:30 06/26/23 11:30 06/26/23 11:30
Lab Results
06/26/23 07:05
06/26/23 07:05
Troponin I < 0.012 ng/ml 06/25/23 18:54
Physical Exam
General: No Apparent Distress and Comfortable
HEENT: Normocephalic, Anicteric and Atraumatic
Respiratory: Non Labored Respirations
Cardiac: Negative JVD
GI: Soft, Non Tender and Non Distended
Musculoskeletal: No Edema
Skin: Warm and Dry
Neuro: AO x 3
Assessment / Plan
-
Assessment: 72-year-old male reported to the ED on 06/25/2023 reporting left upper extremity weakness, MRI of brain confirming multiple scattered small foci of acute to subacute infarction in the right cerebral hemisphere, along with MRA of neck
demonstrating 70% stenosis of right ICA providing evidence for symptomatic carotid stenosis.
Plan:
Will obtain bilateral carotid ultrasound for further evaluation of carotid stenosis
Agree with initiation of statin and DAPT
Will likely schedule patient for right carotid endarterectomy this admission, given high suspicion this is symptomatic carotid stenosis, possibly as early as Monday (06/28/23) pending agreement with neurology. Final surgical plan per on-call
vascular surgeon Dr. Yeyo Santillan.
Data Reviewed
-
Medical Tests (Nuc Med, Echo etc): Report Reviewed by me, Discussed with Physician and Discussed with Patient
Labs: Labs Reviewed by me and Discussed with Physician
--- NOTE | 2023-06-26 14:19 | CM ---
Patient seen bedside with spouse and family, initial assessment completed. Patient reports he lives with his in a split level home, one step to enter, 6 steps to second level. Patient denies VN and SNF, reports has a CPAP machine at home.
Patient reports he has had outpatient PT in the past at [facility]. CM discussed PT recommendation of outpatient PT, patient agreeable if that is what is recommended. Patient confirms PCP Dr. Gonzalez, pharmacy used [facility] in [place]. YAN
reviewed, signed, placed in patients chart. CM will continue to follow for discharge planning needs.
Plan; home no needs, will need script for outpatient PT.
[2023-06-26] MEDS: LIPITOR 40 MG PO (17:25)
[2023-06-26 19:23] LABS: Hepatitis C Antibody Negative (Negative)
[2023-06-26] MEDS: FLOMAX 0.400000000000000022 MG PO (21:14)
[2023-06-27] VITALS (10 sets, daily range): BP systolic 131–156; BP diastolic 74–87; PULSE 70–90; O2SAT 96
[2023-06-27] MEDS: PLAVIX 75 MG PO (07:52)
[2023-06-27] MEDS: ASPIR LOW (ENTERIC COATED) 81 MG PO (07:52)
[2023-06-27] MEDS: VITAMIN D3 (cholecalciferol) 25 MCG PO (07:52)
[2023-06-27] MEDS: VITAMIN B-12 2500 MCG PO (07:52)
--- NOTE | 2023-06-27 09:17 | W.PN.HOSP.TC ---
Today's Communication/Plan
-
.
Assessment / Plan
Assessment / Plan
Physical Exam
-
General: Well Developed and No Apparent Distress
HEENT: Normocephalic, Atraumatic, Moist Mucous Membranes.
Respiratory: Clear to Auscultation
Cardiac: Regular Rhythm and S1/S2; Negative Murmur, Rub or Gallop
GI: Soft, Nontender, Nondistended and Normal Bowel Sounds.
Rectal: No rectal bleeding noted.
Musculoskeletal: No Clubbing, No Cyanosis and No Edema
Skin: Negative Rash
Neuro: Awake, Alert, Oriented, AO x 3 and Nonfocal/Grossly Intact
Psych: Calm
#�Multiple scattered small foci of acute to subacute infarction in the right cerebral hemisphere
He presented with left upper extremity weakness
Started on dual anti-platelets therapy & Statin
-LDL 116. HDL 50. Triglyceride 130. Total cholesterol 192
Echo of the heart showed normal biventricular size and function. Left ventricular ejection fraction of �55-60%. Moderate left ventricular hypertrophy. No significant valvular disease.
- Appreciate neurology input
# Right carotid stenosis �of approximately 70%
Plan for revascularization Monday or
#Essential tremor
-continue propranolol as as needed
#Morbid obesity BMI 38.7
# Anxiety
will add PRN Ativan
DVT proph PCSs
Full Code
Total time spent to see the patient, examine the patient on the floor, review data and lab results, discuss treatment plan with patient, family and nursing staff around 55 minutes
Anticipated Discharge: > 48 hours
Subjective/Interval History
-
Date of Service: June 27, 2023
No chest pain
No sob
No abd pain
Same weakness in left arm, wax and wane
Objective Data
-
Vital Signs:
Vital Signs
Temp Pulse Resp BP Pulse Ox
97.3 F 63 18 142/76 96
06/27/23 03:35 06/27/23 03:35 06/27/23 03:35 06/27/23 03:35 06/27/23 03:35
I&O
06/26/23 06/27/23 06/28/23
06:59 06:59 06:59
Intake Total 480 / 480 720 / 720
Output Total 850 / 850
Balance 480 / 480 -130 / -130
--- NOTE | 2023-06-27 10:13 | W.PN.NEURO.1 ---
Today's Communication / Plan
-
Continue aspirin and clopidogrel for 4 weeks total, then return to aspirin 81 mg daily
Atorvastatin 40 mg daily
Appreciate vascular surgery consultation for symptomatic right carotid stenosis with earliest acceptable date for carotid intervention would be 2
Goal of mild hypertension until remediation of carotid artery stenosis
Goal normoglycemia
TTE and cardiac telemetry
Will follow peripherally
Neuro Assessment/Plan
Assessment
MRI of the brain demonstrates scattered acute ischemic stroke in the right MCA territory including the right occipital lobe, right basal ganglia, and right frontal and parietal cortex notably near motor area of hand/arm, no hemorrhage.
MRA of the head and neck demonstrates no intracranial occlusion or significant intracranial stenosis there is right proximal ICA stenosis appears greater than 50% less than 90%.
Assessment: Patient's initial episode of flailing left arm movements most likely represented either ataxia and clumsy movements versus a limb shaking TIA/stroke which represents a rare manifestation with so-called positive symptoms of stroke/TIA
rather than negative symptoms (paralysis or weakness.)� He had reemergence of stroke symptoms this morning with left arm weakness which most likely represents the natural history of this ischemic stroke, occasionally they are fluctuating symptoms
without maximal symptoms at onset.
Given the patient had a notable duration of left hand and finger weakness observable by ER as well as internal medicine admitting physician this was likely the beginning of ischemic stroke with subsequent improvement, when he had worsening stroke
symptoms today I did not feel he would be an appropriate candidate for TNK/thrombolytics given that the stroke had most likely already occurred and he would be outside the traditional 4.5 hour time window for thrombolytic, I felt that the risks of
TNK intracranial hemorrhage weighed the potential benefits.
Very likely symptomatic right carotid stenosis given the information we have so far.
Plan
Recommendations
Continue aspirin and clopidogrel for 4 weeks total, then return to aspirin 81 mg daily
Atorvastatin 40 mg daily
Appreciate vascular surgery consultation for symptomatic right carotid stenosis with earliest acceptable date for carotid intervention would be 2
Goal of mild hypertension until remediation of carotid artery stenosis
Goal normoglycemia
TTE and cardiac telemetry
Will follow peripherally
Subjective/Objective
Subjective Data
Date of Service: June 27, 2023
Objective Data
Vital Signs
Temp Pulse Resp BP Pulse Ox
36.4 C 57 20 156/86 98
06/27/23 07:30 06/27/23 07:30 06/27/23 07:30 06/27/23 07:30 06/27/23 07:30
Lab Results
06/26/23 07:05
06/26/23 07:05
PT 13.0 Sec (11.4-14.6) 06/25/23 18:54
INR 1.00 06/25/23 18:54
APTT 27.7 Sec (23.4-35.0) 06/25/23 18:54
Sodium 137 mmol/L (135-145) 06/26/23 07:05
Potassium 4.1 mmol/L (3.5-5.1) 06/26/23 07:05
BUN 17 mg/dl (9-20) 06/26/23 07:05
Glucose 101 mg/dl (70-99) H 06/26/23 07:05
Calcium 8.8 mg/dl (8.4-10.2) 06/26/23 07:05
LDL Cholesterol, Calc 116 mg/dl 06/26/23 07:05
Patient Allergies
pollen extracts Allergy (Verified 06/25/23 17:32)
Congestion, Watery eyes
Modified Duane Score (MRS)
-
MRS Score:
Data Reviewed
-
CT-A: Report Reviewed
MRA Head: Report Reviewed
Carotid Ultrasound: Report Reviewed
Labs: Report Reviewed
Reviewed with: Physician and Nurse Practioner
Old Records: Summarized
Past History
Past History
ED Past Medical History: CVA (June 2023 acute ischemic stroke in the right MCA territory including the right occipital lobe, right basal ganglia, and right frontal and parietal cortex), HTN and Hypercholesterolemia
Medications
-
Medications:
Generic Name Dose Route Start Last Admin
Trade Name Freq PRN Reason Stop Dose Admin
Acetaminophen 650 mg 06/25/23 20:30
Acetaminophen 650 Mg Rectal Suppository RECTAL 07/23/23 20:29
Q4HPRN PRN
AMK, mild pain, or temp >100.4F
Acetaminophen 650 mg 06/25/23 20:30
Acetaminophen 325 Mg Tablet PO 07/23/23 20:29
Q4HPRN PRN
MAK, mild pain, or temp >100.4F
Aspirin 81 mg 06/26/23 08:00 06/27/23 07:52
Aspirin 81 Mg (Enteric Coated) Tablet PO 07/24/23 07:59 81 mg
DAILY BALA Administration
Atorvastatin Calcium 40 mg 06/26/23 18:00 06/26/23 17:25
Atorvastatin (Lipitor) 40 Mg Tablet PO 07/24/23 17:59 40 mg
QPM BALA Administration
Cholecalciferol 25 mcg 06/26/23 08:00 06/27/23 07:52
Cholecalciferol (Vitamin D3) 25 Mcg Tablet (1,000 Units) PO 07/24/23 07:59 25 mcg
DAILY BALA Administration
Clopidogrel Bisulfate 75 mg 06/26/23 08:00 06/27/23 07:52
Clopidogrel 75 Mg Tablet PO 07/24/23 07:59 75 mg
DAILY BALA Administration
Cyanocobalamin 2,500 mcg 06/26/23 08:00 06/27/23 07:52
Cyanocobalamin 1,000 Mcg Tablet PO 07/24/23 07:59 2,500 mcg
DAILY BALA Administration
Propranolol HCl 20 mg 06/27/23 08:13
Propranolol 20 Mg Regular Release Tablet PO 07/25/23 08:11
TIDPRN PRN
tremor,anxiety
Sodium Chloride 0 flush 06/25/23 21:00
Sodium Chloride 0.9% (Flush) Syringe IV 07/23/23 20:59
PER PROTOCOL BALA
Tamsulosin HCl 0.4 mg 06/25/23 22:00 06/26/23 21:14
Tamsulosin 0.4 Mg Capsule PO 07/23/23 21:59 0.4 mg
HS BALA Administration
--- NOTE | 2023-06-27 11:24 | CM ---
Patient seen bedside, reports feeling okay. Per Hospitalist notes, plan for revascularization Monday or . CM will continue to follow for all discharge planning needs.
Plan; home no needs, pending further medical evaluation, will need script for outpatient PT if interested.
--- NOTE | 2023-06-27 13:06 | W.PN.UPDATE ---
Update Note
Progress Note Update
CT scan completed last night reviewed earlier this morning. I just spoke extensively to the patient as well as his family. I explained my interpretation of the CT scan results (as well as carotid ultrasound). Discussed that he has soft plaque at
the right proximal ICA/bifurcation that results in at least 70% stenosis based on CTA (and MRI confirms). Discussed recommendation for carotid revascularization in the symptomatic setting based on NASCET. Discussed modalities of revascularization.
Showed schematics to facilitate understanding. Discussed carotid endarterectomy versus TCAR. Recommended primarily carotid endarterectomy in this particular setting. Discussed procedure at length and recovery. Discussed risks including but not
limited to bleeding, infection, cardiac complications/[place], cranial nerve injury, stroke (2 to 3% in the symptomatic setting). In addition I discussed rare risks of cerebral hypoperfusion, and risks of worsening of infarcted zone or
swelling/hemorrhagic conversion.
Patient understands all and wishes to proceed with RIGHT carotid endarterectomy.
Patient has had somewhat waxing and waning left upper extremity symptoms (seems improved today). Based on this would favor repeat noncontrast CT head tomorrow to ensure no cerebral edema/intracranial bleeding. As long as stable we will plan
carotid revascularization on morning. (06/29/2023). Discussed this timing based on neurology recommendations as well. Discussed also cardiology evaluation based on the fact that patient tells me when he walks uphill he does get some
shortness of breath and discomfort in the chest sometimes.
--- NOTE | 2023-06-27 15:37 | CON.CAR ---
Addendum entered and electronically signed by Max Suarez MD 06/27/23 17:45:
72 yo male with PMH of HTN admitted with stroke and found to have severe right carotid stenosis. Plan for inpatient right CEA. We are consulted for pre-op risk stratification. Patient does report MENDEZ and chest tightness with moderate exertion.
Exam with RRR, no murmurs, no edema. Echo: EF 55-60%, no sig valve disease.
Given his symptoms, we will proceed with nuclear stress test tomorrow. We will complete the risk stratification once we have the stress test results.
Discussed with patient, family, hospitalist team, and vascular surgery.
Original Note:
Consultation
Consultation Request
Date/Time Consultation Requested: 06/27/23 15:30
Date/Time Consultation Performed: 06/27/23 15:40
Requesting Provider: Dr. Malave
Performing Provider: TRICIA Zhao for Dr. Suarez
Reason for Consultation: Pre-op risk assessment
Medical History
-
Chief Complaint: Left upper extremity spasm
History of Present Illness:
Timmy Bailey is a 72 year old male (known to Dr. Cesar Gaxiola, his primary ct technologist), with hypertension, ANNA, and right hand essential tremor (on propranolol) presented to the emergency department with acute onset left arm spasm with sporadic
movements and associated hand numbness. Brain MRI with small foci of acute to subacute infarction in the right cerebral hemisphere. He was found to have right carotid artery stenosis. The plan is for right CEA on . He endorses some
shortness of breath while walking up a hill. Cardiology has been asked to perform a cardiac risk assessment.
Past Medical History
Past Medical History: HTN, Hypercholesterolemia and Other (ANNA)
Past Surgical History: Orthopedic
Social History
Tobacco: Non-Smoker
Alcohol: None
Drug: None
Personal:
Living: With Family
Family History
Family History: Early CAD (Brother with CABG in fourth decade.)
Allergies / Home Medications
Allergy/AdvReac Type Severity Reaction Status Date / Time
pollen extracts Allergy Congestion, Verified 06/25/23 17:32
Watery eyes
Medication Instructions Recorded Confirmed Type
cholecalciferol (vitamin D3) 25 25 mcg PO DAILY 02/17/22 06/25/23 History
mcg (1,000 unit) capsule (Vitamin
D3)
cyanocobalamin (vitamin B-12) 2,500 mcg PO DAILY 02/17/22 06/25/23 History
2,500 mcg tablet
fluticasone propionate 50 2 spray intranasal DAILY 02/17/22 06/25/23 History
mcg/actuation nasal
spray,suspension (Flonase Allergy
Relief)
glucosamine sulf dipot 1 cap PO DAILY 02/17/22 06/25/23 History
chlr,msm,chond 550 mg-C 30 mg-nino
1 mg capsule (Glucosamine
Chondroitin)
loratadine 10 mg tablet (Claritin) 10 mg PO DAILY 02/17/22 06/25/23 History
magnesium citrate 125 mg capsule 250 mg PO DAILY 02/17/22 06/25/23 History
ltpnvysxhnap-sembcemt-woxhjg 1 tab PO .3X WEEKLY 02/17/22 06/25/23 History
tablet (Multivitamin 50 Plus
tablet)
omega 9-cak-neh-fish oil 1,000 mg 1 cap PO DAILY 02/17/22 06/25/23 History
(120 mg-180 mg) capsule (Fish Oil)
propranolol 20 mg tablet 20 mg PO TID 02/17/22 06/25/23 History
testosterone 1 % (25 mg/2.5 gram) 1 packet transdermal DAILY 02/17/22 06/25/23 History
transdermal gel packet (AndroGel)
zinc acetate 50 mg (zinc) capsule 50 mg PO DAILY 02/17/22 06/25/23 History
aspirin 81 mg tablet,delayed 81 mg PO DAILY 06/25/23 06/25/23 History
release
tamsulosin 0.4 mg capsule 0.4 mg PO HS 06/25/23 06/25/23 History
Review of Systems
-
History Source: Patient
All other systems: Negative unless noted
Respiratory: No Symptoms
Cardiac: No Symptoms
Abdomen/GI: No Symptoms
Physical Exam
Vital Signs
Temp Pulse Resp BP Pulse Ox
97.9 F 60 18 147/74 96
06/27/23 11:30 06/27/23 11:30 06/27/23 11:30 06/27/23 11:30 06/27/23 11:30
Lab Results
06/26/23 07:05
06/26/23 07:05
Troponin I < 0.012 ng/ml 06/25/23 18:54
Physical Exam
General: Well Developed, Well Nourished, No Apparent Distress and Comfortable
HEENT: Normocephalic, Anicteric and Moist Mucous Membranes
Respiratory: Clear and Non Labored Respirations
Cardiac: S1/S2 and Regular Rhythm; Negative Peripheral Edema
Breast: Deferred by me
GI: Soft, Non Tender, Non Distended and Normal Bowel Sounds
Rectal: Deferred by Provider
Genito-urinary: No Costovertebral Tender
Musculoskeletal: No Clubbing, No Cyanosis and No Edema
Skin: Warm and Dry
Neuro: AO x 3
Hematologic/Lymphatic: No Lymphadenopathy
Psych: Calm
Impression / Plan
-
Cardiac risk assessment - CEA
-No history of MA, heart failure, nor renal disease
-Some shortness of breath while walking up a hill, chest pain free
-TTE without acute findings
-Lexiscan Nuclear Stress test in am (caffeine free diet, NPO after midnight)
Carotid stenosis, right
-CEA pending stress test results
CVA, neurology following
HTN, BP goals per Neurology
ANNA
Essential tremor, on propraolol
Data Reviewed
-
CT Scan: Report Reviewed by me (Head/Neck: No evidence of M1 or M2 occlusion. No evidence of carotid dissection. Focal stenosis of proximal right internal carotid artery of approximately 70%. Stable. Multilevel degenerative disc disease of the
cervical spine.)
Ultrasound: Report Reviewed by me (Vascular: Right carotid: Moderate soft noncalcified plaque proximal internal carotid artery. Velocity profile, however, consistent with less than 50% internal carotid artery stenosis. This is discrepant with MRA
findings noted earlier today)
MRI: Report Reviewed by me (Brain: Multiple scattered small foci of acute to subacute infarction in the right cerebral hemisphere)
Labs: Labs Reviewed by me
Old Records: Reviewed
[2023-06-27] MEDS: LIPITOR 40 MG PO (17:14)
[2023-06-27] MEDS: FLOMAX 0.400000000000000022 MG PO (21:05)
[2023-06-28 03:06] VITALS: BP 162/85
[2023-06-28 07:20] VITALS: BP 143/82
--- NOTE | 2023-06-28 09:23 | W.PN.HOSP.TC ---
Today's Communication/Plan
-
.
Assessment / Plan
Assessment / Plan
Physical Exam
-
General: Well Developed and No Apparent Distress
HEENT: Normocephalic, Atraumatic, Moist Mucous Membranes.
Respiratory: Clear to Auscultation
Cardiac: Regular Rhythm and S1/S2; Negative Murmur, Rub or Gallop
GI: Soft, Nontender, Nondistended and Normal Bowel Sounds.
Rectal: No rectal bleeding noted.
Musculoskeletal: No Clubbing, No Cyanosis and No Edema
Skin: Negative Rash
Neuro: Awake, Alert, Oriented, AO x 3 and Nonfocal/Grossly Intact
Psych: Calm
#�Multiple scattered small foci of acute to subacute infarction in the right cerebral hemisphere
He presented with left upper extremity weakness. Weakness seemed to wax and wane at times and sometimes related to low Bp.
Started on dual anti-platelets therapy & Statin for now.
-LDL 116. HDL 50. Triglyceride 130. Total cholesterol 192
Echo of the heart showed normal biventricular size and function. Left ventricular ejection fraction of �55-60%. Moderate left ventricular hypertrophy. No significant valvular disease.
- Appreciate neurology input
# Right carotid stenosis �of approximately 70%
Plan for revascularization
d/w Dr Santillan, requested cardiac evaluation. d/w Dr Suarez, plan for stress test today
#Essential tremor
-continue propranolol as as needed
#Morbid obesity BMI 38.7
# Anxiety
will add PRN Ativan
DVT proph PCSs
Full Code
Total time spent to see the patient, examine the patient on the floor, review data and lab results, discuss treatment plan with patient, family, consultants and nursing staff around 57 minutes
Anticipated Discharge: > 48 hours
Subjective/Interval History
-
Date of Service: June 28, 2023
No complaints
No chest pain
No sob
No headache
no fevers
Objective Data
-
Vital Signs:
Vital Signs
Temp Pulse Resp BP Pulse Ox
97.9 F 102 16 143/82 98
06/28/23 07:20 06/28/23 07:20 06/28/23 07:20 06/28/23 07:20 06/28/23 07:20
I&O
06/27/23 06/28/23 06/29/23
06:59 06:59 06:59
Intake Total 720 / 720 1360 / 1360
Output Total 850 / 850
Balance -130 / -130 1360 / 1360
--- NOTE | 2023-06-28 10:28 | W.PN.CD ---
Today's Communication / Plan
-
Lexiscan Nuclear Stress test today
Impression / Plan
-
Cardiac risk assessment - CEA
-No history of MO, heart failure, nor renal disease
-Some shortness of breath while walking up a hill, chest pain free
-TTE without acute findings
-Lexiscan Nuclear Stress test today
Carotid stenosis, right
-CEA pending stress test results
-ASA, Plavix, statin
CVA, neurology following
HTN, BP goals per Neurology
ANNA
Essential tremor, on propranolol as outpatient
Physical Exam
Vital Signs/Labs
Vital Signs
Temp Pulse Resp BP Pulse Ox
97.9 F 102 16 143/82 98
06/28/23 07:20 06/28/23 07:20 06/28/23 07:20 06/28/23 07:20 06/28/23 07:20
06/26/23 07:05
06/26/23 07:05
PT 13.0 Sec (11.4-14.6) 06/25/23 18:54
INR 1.00 06/25/23 18:54
APTT 27.7 Sec (23.4-35.0) 06/25/23 18:54
Magnesium 2.2 mg/dl (1.6-2.3) 06/25/23 17:53
Triglycerides 130 mg/dl (10-149) 06/26/23 07:05
LDL Cholesterol, Calc 116 mg/dl 06/26/23 07:05
VLDL Cholesterol, Calc 26 mg/dl (0-30) 06/26/23 07:05
HDL Cholesterol 50 mg/dl 06/26/23 07:05
TSH 1.63 uIU/ml (0.47-4.68) 06/25/23 17:53
LAB Results
06/25/23
18:54
Troponin I < 0.012
Physical Exam
Constitutional: No acute distress and Comfortable
EENT: Moist mucous membranes
Cardiovascular: Rhythm & rate is regular, Pedal edema is absent, JVD pressure is normal and Systolic murmur absent
Respiratory: Respiratory effort normal, Lungs clear to auscul. and Wheeze Absent
GI: Soft, Distention absent and Flat
Neuro/Psych: AO x 3
Data Reviewed
-
Date of Service: June 28, 2023
EKG: Tracing Personally Visualized and interpreted (SB, PVC) and Other
Echo: Report Reviewed by me (EF 55-60%, no significant valve disease)
[2023-06-28] MEDS: LEXISCAN 0.400000000000000022 MG IV ×2 (10:56→11:36)
[2023-06-28] MEDS: AMINOPHYLLINE 75 MG IV (11:40)
--- NOTE | 2023-06-28 13:01 | PTCARENOTE ---
Pt in cardiac services having lexiscan stress test done. After test, pt c/o seeing prisms stating he experienced the same thing on Monday and about 10 years ago. Once patient sat up, prisms went away. Prisms as per patient lasted for about 5 min in
total. NAM Willett aware. Dr. Malave aware and in to see patient. Rosales, patients nurse made aware.
[2023-06-28 13:45] VITALS: BP 129/98
--- NOTE | 2023-06-28 14:05 | W.PN.UPDATE ---
Update Note
Progress Note Update
Nuclear stress test shows no evidence of ischemia. Patient can proceed to OR at intermediate risk without additional cardiac testing.
[2023-06-28] MEDS: VITAMIN B-12 2500 MCG PO (14:17)
[2023-06-28] MEDS: VITAMIN D3 (cholecalciferol) 25 MCG PO (14:17)
[2023-06-28] MEDS: ASPIR LOW (ENTERIC COATED) 81 MG PO (14:17)
[2023-06-28] MEDS: PLAVIX 75 MG PO (14:17)
[2023-06-28 15:10] VITALS: BP 170/90
--- NOTE | 2023-06-28 15:11 | W.PN.UPDATE ---
Update Note
Progress Note Update
Discussed with lan manager Dr. Suarez regarding results of stress test. Also reviewed report of CT head. No acute findings. Therefore we will proceed as planned for tomorrow a.m. with right carotid endarterectomy.
--- NOTE | 2023-06-28 15:25 | CM ---
Patient seen bedside with family, per updated notes, plan for endarterectomy tomorrow. IMM reviewed, signed, placed in patients chart. CM will continue to follow for discharge planning needs.
Plan; home no needs anticipated.
[2023-06-28] MEDS: LIPITOR 40 MG PO (17:12)
[2023-06-28 19:53] VITALS: BP 139/79
[2023-06-28] MEDS: FLOMAX 0.400000000000000022 MG PO (21:36)
[2023-06-28 23:30] VITALS: BP 158/90
[2023-06-29] VITALS (17 sets, daily range): BP systolic 116–157; BP diastolic 59–89; PULSE 74–90
[2023-06-29] MEDS: BACTROBAN 2% OINTMENT 1 APPLIC NASAL (06:22)
[2023-06-29] MEDS: PERIDEX 0.12% ORAL RINSE 15 ML PO (06:22)
--- NOTE | 2023-06-29 07:15 | W.PN.NEURO.1 ---
Today's Communication / Plan
-
-CEA today
-DAPT therapy 21 days then aspirin
-Statin
-Neurologic checks and NIH scales
-Watch closely in ICU post procedure
-Pursue goal normal blood pressure avoid SBP more than 180 post procedure
Will follow
Neuro Assessment/Plan
Assessment
MRI of the brain demonstrates scattered acute ischemic stroke in the right MCA territory including the right occipital lobe, right basal ganglia, and right frontal and parietal cortex notably near motor area of hand/arm, no hemorrhage.
MRA of the head and neck demonstrates no intracranial occlusion or significant intracranial stenosis there is right proximal ICA stenosis appears greater than 50% less than 90%.
Assessment: Patient's initial episode of flailing left arm movements most likely represented either ataxia and clumsy movements versus a limb shaking TIA/stroke which represents a rare manifestation with so-called positive symptoms of stroke/TIA
rather than negative symptoms (paralysis or weakness.)� He had reemergence of stroke symptoms this morning with left arm weakness which most likely represents the natural history of this ischemic stroke, occasionally they are fluctuating symptoms
without maximal symptoms at onset.
Given the patient had a notable duration of left hand and finger weakness observable by ER as well as internal medicine admitting physician this was likely the beginning of ischemic stroke with subsequent improvement, when he had worsening stroke
symptoms today I did not feel he would be an appropriate candidate for TNK/thrombolytics given that the stroke had most likely already occurred and he would be outside the traditional 4.5 hour time window for thrombolytic, I felt that the risks of
TNK intracranial hemorrhage weighed the potential benefits.
Rigth carotid stenosis symptomatic
Mild worsening left arm weakness just after OR and emerging from anesthesia, seen at bedside by myself posteroperatively with exam similar to that of this morning before CEA, reassuring and improving
Plan
Recommendations
Continue aspirin and clopidogrel for 4 weeks total, then return to aspirin 81 mg daily
Atorvastatin 40 mg daily
Appreciate vascular surgery consultation for symptomatic right carotid stenosis with earliest acceptable date for carotid intervention would be 06/28
Goal of mild hypertension until remediation of carotid artery stenosis
Goal normoglycemia
TTE and cardiac telemetry
Will follow peripherally
Subjective/Objective
Subjective Data
Date of Service: June 29, 2023
Discussed CEA today, no headache, notes left arm improving but no 100% normal with hand or left shoulder strength and coordination
Objective Data
Vital Signs
Temp Pulse Resp BP Pulse Ox
98.0 F 75 18 157/89 98
06/29/23 03:05 06/29/23 03:05 06/29/23 03:05 06/29/23 03:05 06/29/23 03:05
PT 13.0 Sec (11.4-14.6) 06/25/23 18:54
INR 1.00 06/25/23 18:54
APTT 27.7 Sec (23.4-35.0) 06/25/23 18:54
Sodium 137 mmol/L (135-145) 06/26/23 07:05
Potassium 4.1 mmol/L (3.5-5.1) 06/26/23 07:05
BUN 17 mg/dl (9-20) 06/26/23 07:05
Glucose 101 mg/dl (70-99) H 06/26/23 07:05
Calcium 8.8 mg/dl (8.4-10.2) 06/26/23 07:05
LDL Cholesterol, Calc 116 mg/dl 06/26/23 07:05
Patient Allergies
pollen extracts Allergy (Verified 06/25/23 17:32)
Congestion, Watery eyes
Review of Systems
-
History Source: Patient
All other systems: Reviewed and negative
Constitutional: No Symptoms
EENT: No Symptoms Reported
Respiratory: No Symptoms
Cardiac: No Symptoms
Abdomen/GI: No Symptoms
Genitourinary: No Symptoms
Musculoskeletal: No Symptoms
Skin: No Symptoms
Neuro: Weakness; Negative Speech Problem
Endocrine: No Symptoms
Hematologic / Lymphatic: No Symptoms
Allergy / Immunology: No Symptoms
Physical Exam
-
General: Comfortable
Eyes: No Ptosis
HEENT: Normocephalic
Neck: No Bruits Bilaterally
Respiratory: Clear to Auscultation
Cardiac: Regular Rhythm
GI: Normal Bowel Sounds
Skin: Unremarkable
Extremities: No Clubbing
Psych: Unremarkable
Extended Neurological Exam
Mood & Affect: Mood Unremarkable and Affect Unremarkable
Attention Span & Concentration: Awake, Alert and Interactive
Memory: Unremarkable
Tremor: Hand Tremor Absent
Involuntary Movement: None
Speech: Quality Unremarkable and Quantity Unremarkable; Negative Expressive Aphasia, Receptive Aphasia or Dysarthric
Cranial Nerve II: Left Eye: Pupillary Reactivity Unremarkable, Pupillary Size Unremarkable and Visual Judd Intact
Cranial Nerve II: Right Eye: Pupillary Reactivity Unremarkable and Pupillary Size Unremarkable
Cranial Nerve XI: Shoulder Shrug: Unremarkable
Cranial Nerve XII: Tongue Protusion: Midline
Muscle Strength, Overall: Other (Left arm drift, 4/5 abduction arm flexion and mild left hand coordination impairment and sea foam kiss maker strength weakness)
Pronator Drift: Drift in Left Upper Extremity
Deep Tendon Reflexes: Trace Throughout
Coordination: Other (Left arm ataxia)
Modified Duane Score (MRS)
-
MRS Score:
Data Reviewed
-
CT-A: Report Reviewed and Image Reviewed
CT Head: Report Reviewed and Image Reviewed
MRI Head: Report Reviewed and Image Reviewed
Echocardiogram: Report Reviewed
--- NOTE | 2023-06-29 07:24 | W.SUR.PREOP ---
Pre-Operative Surgical Note
-
I have examined this patient prior to the performance of the scheduled procedure.
The patient's condition is unchanged from the time of the current History and
Physical and the patient is able to undergo the scheduled procedure.
[2023-06-29 07:32] LABS: Hematocrit 42.5 % (39.0-52.0); Hemoglobin 14.7 g/dL (13.0-18.0); Mean Corp Hgb Conc. 34.6 g/dL (33.0-37.0); Mean Corpuscular Volume 92.6 fL (80.0-94.0); Mean Platelet Volume 10.9 fL (7.4-10.4); Platelet Count 147 10^3/uL (130-400); Red Blood Cell Count 4.59 10^6/uL (4.70-6.10); Red Cell Dist. Width 13.2 % (11.5-14.5); White Blood Cell Count 5.7 10^3/uL (4.8-10.8)
[2023-06-29 07:49] LABS: APTT 30.6 Sec (23.4-35.0); INR 1.08
[2023-06-29] MEDS: ANCEF 10 IV (07:50)
[2023-06-29 07:56] LABS: Blood Urea Nitrogen 15 mg/dl (9-20); Calcium 8.9 mg/dl (8.4-10.2); Carbon Dioxide 25 mmol/L (22-30); Chloride 105 mmol/L (98-107); Estimated Creatinine Clearance 98 ml/min; Glucose 102 mg/dl (70-99); Potassium 4.1 mmol/L (3.5-5.1); Sodium 136 mmol/L (135-145); eGFR > 60.00
--- NOTE | 2023-06-29 08:47 | W.PN.HOSP.TC ---
Today's Communication/Plan
-
.
Going for OR today
Assessment / Plan
Assessment / Plan
Physical Exam
-
General: Well Developed and No Apparent Distress
HEENT: Normocephalic, Atraumatic, Moist Mucous Membranes.
Respiratory: Clear to Auscultation
Cardiac: Regular Rhythm and S1/S2; Negative Murmur, Rub or Gallop
GI: Soft, Nontender, Nondistended and Normal Bowel Sounds.
Rectal: No rectal bleeding noted.
Musculoskeletal: No Clubbing, No Cyanosis and No Edema
Skin: Negative Rash
Neuro: Awake, Alert, Oriented, AO x 3. no new deficits noted.
Psych: Calm
#�Multiple scattered small foci of acute to subacute infarction in the right cerebral hemisphere
He presented with left upper extremity weakness. Weakness seemed to wax and wane at times and sometimes related to low Bp.
Started on dual anti-platelets therapy & Statin for now.
-LDL 116. HDL 50. Triglyceride 130. Total cholesterol 192
Echo of the heart showed normal biventricular size and function. Left ventricular ejection fraction of �55-60%. Moderate left ventricular hypertrophy. No significant valvular disease.
- Appreciate neurology input
# Right carotid stenosis �of approximately 70%
Plan for revascularization today
d/w Dr Santillan, requested cardiac evaluation. d/w Dr Suarez, nuclear test showed no ischemia
#Essential tremor
-continue propranolol as as needed
#Morbid obesity BMI 38.7
# Anxiety
Added PRN Ativan
DVT proph PCSs
Full Code
Total time spent to see the patient, examine the patient on the floor, review data and lab results, discuss treatment plan with patient, family, consultants and nursing staff around 57 minutes
Anticipated Discharge: 24 - 48 hours
Subjective/Interval History
-
Date of Service: June 29, 2023
going to surgery
Objective Data
-
Labs:
Laboratory Results
02/08/24
06:28
WBC 5.7
Hgb 14.7
Hct 42.5
Plt Count 147
PT 14.0
INR 1.08
APTT 30.6
Sodium 136
Potassium 4.1
Chloride 105
Carbon Dioxide 25
BUN 15
Creatinine 0.9
Glucose 102 H
Calcium 8.9
Vital Signs:
Vital Signs
Temp Pulse Resp BP Pulse Ox
98.0 F 75 18 157/89 98
06/29/23 03:05 06/29/23 03:05 06/29/23 03:05 06/29/23 03:05 06/29/23 03:05
I&O
06/28/23 06/29/23 06/30/23
06:59 06:59 06:59
Intake Total 1360 / 1360 1560 / 1560
Balance 1360 / 1360 1560 / 1560
--- NOTE | 2023-06-29 09:01 | W.SUR.POST ---
Surgical Immediate Post Op
Note
Pre Op Diagnosis: Symptomatic carotid stenosis
Post Op Diagnosis: Symptomatic carotid stenosis
Procedure Performed: Right carotid endarterectomy with bovine pericardium angioplasty
Primary Surgeon: Yeyo Santillan MD
Assist: TRICIA Noyola
Anesthesia: GETA
Estimated Blood Loss: 75 ml
Fluids: See anesthesia flowsheet
Drains/Shunts: N/A
Specimens/Cultures: Right carotid plaque
Doppler/Duplex/Angio (Y/N): Y, Doppler
Complications: None
Operative Findings: Upon awakening able to move bilateral upper extremity and lower extremity to command and spontaneously. However, does report weakness in the left hand similar to initial strokelike symptomatology continues to improve with time.
--- NOTE | 2023-06-29 09:02 | W.PV.INTER ---
VPI Note
Pre Admission Note
Functional Status: Full
Ambulation: Ambulate Independently
Pre Op Medications
Pre Op ASA: Yes
Pre Op Statin: No
Pre Op AMY Inhibitor/ARB: No
Pre Op P2y12 Antagonist: None
Pre Op Beta Blockers: Chronic > 30 Days
Pre Op Chronic Anticoagulant: None
Pre Op Cilostazol: No
Post Op Medications
Post Op ASA: Yes
Post Op Statin: Yes
Post Op AMY Inhibitor/ARB: No
Post Op P2y12 Antagonist: Clopidogrel
Post Op Beta Blockers: Chronic > 30 Days
Post Op Chronic Anticoagulant: None
Post Op Cilostazol: No
Modified Duane
Pre Op: 1
Post Op: 1
[2023-06-29 09:33] LABS: ACT-LR - POC 136 Seconds (116-155)
--- NOTE | 2023-06-29 10:34 | OR.RPT ---
Operative Report
Operative Report
PROCEDURE DATE: 06/29/2023
Preoperative diagnosis: Symptomatic critical right carotid artery stenosis.
Postoperative diagnosis: Same
Procedure: Right carotid endarterectomy with bovine pericardial patch angioplasty and intraoperative EEG/SSEP monitoring.
Surgeon: Tyrell
Job Placement Officer: NAM Drummond, required for all aspects of the procedure including traction/countertraction, following of suture line, assistance with closure.
Complications: None
Anesthesia: General
Indications for procedure:
Patient presented with ischemic infarcts right hemisphere with left upper extremity weakness. Right carotid stenosis with soft plaque noted on CT angiogram imaging. Risk/benefits/alternatives of carotid revascularization were fully discussed with
the patient. Patient understood all and wished to proceed with right carotid endarterectomy.
Description of procedure:
Patient was identified brought to the operating room placed on the table in supine position. After the adequate administration of anesthesia and perioperative antibiotics he was prepped and draped in the standard surgical fashion. A standard
preoperative timeout was undertaken and everybody was in agreement the plan. A standard longitudinal incision was made in the right neck that was carried through the skin subcutaneous tissue. Using the electrocautery dissection was carried through
the platysma muscle layer and then alongside the anterior medial border of the sternocleidomastoid muscle. Then using a combination of sharp dissection with the Metzenbaum scissors and electrocautery I dissected along the anterior medial border of
the internal jugular vein. The common facial vein branch was ligated between silk ties and then divided. I then deepened my retraction. The common carotid artery was identified and carefully dissected away from the surrounding structures take
great care to avoid any injury to the structures. A vessel loop was passed around it which was double looped, but not yet tightened. Note the vagus nerve was noted on the anterior lateral surface of the common carotid artery, and was carefully
teased/dissected away taking care not to grasp the nerve at all. I then continued my dissection up the common carotid artery to the bulb staying only on the anterior surface of the carotid artery. Then I carried the dissection up to the internal
carotid artery and then to the distal internal carotid artery. I identified where it was soft and carefully circumferentially dissected the internal carotid artery with minimal mobilization and passed a vessel loop around it. Note the hypoglossal
nerve was not noted in our field, and was felt to be further cephalad. The patient was given an appropriate dose of heparin 11,000 units. Next I dissected the anterior surface of the external carotid artery and superior thyroid branches. The
superior thyroid branch was circumferentially dissected and a vessel loop passed around it. I did not completely circumferentially dissect the external carotid artery at this point, given concern for mobilization of the bulb too much. However, the
anterior surface of it was dissected. After 3 minutes of heparin circulation time and confirmation of optimization of the blood pressure with my anesthesiology colleagues, I clamped the distal internal carotid artery where it was soft. There was
no immediate EEG or SSEP changes. After 1 minute of test clamp time there was no changes noted. Note, during the 1 minute test clamp time, I quickly circumferentially dissected the external carotid branches well and passed a vessel loop around it
which was double up but not yet tightened. After 1 minute of EEG test clamp time, the vessel loops on the external carotid artery and superior thyroid branches were tightened and the common carotid artery was clamped where it was soft proximally.
An arteriotomy was made on the common carotid artery with an 11 blade and extended using a Diaz scissor. I extended the arteriotomy onto the mid to distal internal carotid artery. Note, I noted retrograde bleeding into the carotid bulb from the
vicinity of the external carotid artery. The vessel loop was nicely tightened on that artery but the oozing seem to be from the opening of the external carotid artery. After careful dissection, I was able to identify an additional branch that ran
cephalad almost in the crotch of the carotid bifurcation on the external carotid artery side. Likely was an early external branch. I was able to carefully circumferentially dissect this branch and passed a vessel loop around it which was double up
and then tightened. This was then able to control the bleeding. As far as the plaque, there was a hemorrhagic ulcerative plaque isolated to the carotid bulb/very proximal internal carotid artery. This correlated to the region seen on CT scan..
The ulcerative cavity was noted to contain soft hemorrhagic debris, which seemed to be a clear source of potential atheroemboli/recent infarct. A [place] was then used to endarterectomized the plaque. An endarterectomy plane was created, and the
plaque was then endarterectomized. This proved to be very challenging due to focal ulcerated plaque, and the remainder of the bulb/proximal internal carotid artery had really just slightly thickened intima and this did not really easily
endarterectomized. However, I was able to cleave into the standard endarterectomy plane and endarterectomized back to normal intima. Distally I feathered the plaque out to a nice clean endpoint in the distal internal carotid artery. Next I
endarterectomized the intima back to normal intima in the common carotid artery, and the intima was cut flush there. I then grasped the plaque/thickened intima and everted plaque out of the origin of the external carotid artery. The plaque was
then sent off for specimen. The origin of the external carotid artery was carefully visualized and any fine debris were removed with fine forceps. Proximal and distal endpoints were then carefully inspected. Any fine debris was removed with fine
forceps, and the intima was noted to be nicely adherent proximally distally. Next any fine debris were removed throughout the endarterectomy bed with fine forceps. I then flushed heparinized saline. I was very satisfied. Then, I used a bovine
pericardial patch to sew a patch angioplasty with a running 6-0 Prolene suture. Prior to completing and tying down my suture line, I backbled sequentially each branch and reclamped each branch prior to unclamping the next branch. I then irrigated
with heparinized saline. Then I completed and tied down my suture line. We then restored flow in the common carotid and external carotid arteries. Finally, we released flow in the internal carotid artery. There was excellent pulsatile flow in
all 3 vessels. There was an excellent Doppler signal in the internal carotid artery distal to the patch with a good normal low resistance Doppler signal. There was a good Doppler signal in the external carotid artery as well. 6-0 Prolene
[id number] sutures were placed along any bleeding points along the suture line. Protamine was given to reverse the heparin. There was some continued oozing at the needle holes. We checked ACT to confirm that it was in the normal range. I
meticulously worked to achieve full hemostasis. Finally, full hemostasis was completely achieved. We then irrigated and confirmed full hemostasis. I then closed in layers with 2-0 Vicryl layer to reapproximate the sternocleidomastoid muscle,
followed by 3-0 Vicryl platysma muscle running layer, followed by 4 Monocryl subcuticular stitch. Dermabond was applied. The patient tolerated procedure well. He awoke moving his right upper and bilateral lower extremities to command with tongue
in the midline. Left upper extremity had good proximal strength in the shoulder and biceps/triceps. Intrinsic hand and wrist was slightly weak (affected initial area). Though this had recovered preoperatively to a great deal, I felt this was
likely a remembrance type phenomenon. I confirmed with neuro monitoring team that there had been absolutely no changes in EEG/SSEP tracings throughout the length of the procedure. I discussed with our neurologist, and we agreed to transport
patient to PACU for close monitoring, and if not improving upper extremity exam then we would pursue further imaging. Patient was widely awake, completely appropriate/conversant. Denied any headache. As of time leaving OR for PACU, he regained
slight intrinsic left hand movement (but not yet to full normal). He did have intact left hand sensation throughout.
[2023-06-29] MEDS: DILAUDID 0.5 MG IV (10:48)
[2023-06-29 10:49] LABS: Hematocrit 40.1 % (39.0-52.0); Hemoglobin 13.9 g/dL (13.0-18.0); Mean Corp Hgb Conc. 34.7 g/dL (33.0-37.0); Mean Corpuscular Hgb 32.5 pg (27.0-31.0); Mean Corpuscular Volume 93.7 fL (80.0-94.0); Red Blood Cell Count 4.28 10^6/uL (4.70-6.10); Red Cell Dist. Width 13.2 % (11.5-14.5); White Blood Cell Count 9.1 10^3/uL (4.8-10.8)
[2023-06-29 10:59] LABS: Blood Urea Nitrogen 13 mg/dl (9-20); Calcium 8.1 mg/dl (8.4-10.2); Carbon Dioxide 26 mmol/L (22-30); Chloride 106 mmol/L (98-107); Estimated Creatinine Clearance 111 ml/min; Glucose 119 mg/dl (70-99); INR 1.14; PT 14.6 Sec (11.4-14.6); Sodium 136 mmol/L (135-145); eGFR > 60.00
[2023-06-29 11:01] LABS: APTT 30.3 Sec (23.4-35.0)
--- NOTE | 2023-06-29 11:19 | CON.INTV ---
Consultation
Consultation Request
Date/Time Consultation Requested: 06/29/2023- PM
Date/Time Consultation Performed: 06/29/2023- PM
Requesting Provider: Vascular surgery
Performing Provider: Dr. Treviño
Reason for Consultation: Postop critical care management
Medical History
-
Chief Complaint: Carotid stenosis
History of Present Illness:
72-year-old male with history of hypertension essential tremors obesity and obstructive sleep apnea who presented with new onset neurologic symptoms found to have multiple scattered subacute infarcts in the right cerebral hemisphere and underwent
right carotid endarterectomy-physical therapist center manager consulted for postoperative critical care management 06/29/2023. I am seeing the patient postoperatively in the surgical intensive care unit. Patient is alert and oriented without dysarthria, swallowing
difficulties, weakness, facial droop. He denies any shortness of breath, chest pain, chest tightness, productive cough, chest congestion, and only complains of a sore throat. Does not complain of any abdominal pain, leg swelling or weakness.
Past Medical History
Past Medical History: None (Hypertension. Hyperlipidemia. Obstructive sleep apnea. Obesity-BMI 38.7. Anxiety. Essential tremors. Osteoarthritis.)
Social History
Tobacco: Non-smoker
Alcohol: Occasional
Drug: None
Personal:
Living: With Family
Occupational Exposures: No known asbestos exposure
Environmental Exposures: no known tuberculosis exposure
Family History
Family History: Reviewed & Not Pertinent and Other (Brother-CAD)
Allergies / Home Medications
Allergies
Allergy/AdvReac Type Severity Reaction Status Date / Time
pollen extracts Allergy Congestion, Verified 06/25/23 17:32
Watery eyes
Home Medications
Medication Instructions Recorded Confirmed Last Taken Type
cholecalciferol (vitamin D3) 25 25 mcg PO DAILY Supplement 02/17/22 06/25/23 06/25/23 History
mcg (1,000 unit) capsule (Vitamin
D3)
cyanocobalamin (vitamin B-12) 2,500 mcg PO DAILY Supplement 02/17/22 06/25/23 06/25/23 History
2,500 mcg tablet
fluticasone propionate 50 2 spray intranasal DAILY Allergies 02/17/22 06/25/23 06/25/23 History
mcg/actuation nasal
spray,suspension (Flonase Allergy
Relief)
glucosamine sulf dipot 1 cap PO DAILY Supplement 02/17/22 06/25/23 06/25/23 History
chlr,msm,chond 550 mg-C 30 mg-nino
1 mg capsule (Glucosamine
Chondroitin)
loratadine 10 mg tablet (Claritin) 10 mg PO DAILY Allergies 02/17/22 06/25/23 06/25/23 History
magnesium citrate 125 mg capsule 250 mg PO DAILY Supplement 02/17/22 06/25/23 06/25/23 History
imraoorjkhfr-bfxjtbmn-hlatgu 1 tab PO .3X WEEKLY Supplement 02/17/22 06/25/23 03/07/22 History
tablet (Multivitamin 50 Plus
tablet)
omega 5-xxf-zzx-fish oil 1,000 mg 1 cap PO DAILY Supplement 02/17/22 06/25/23 06/25/23 History
(120 mg-180 mg) capsule (Fish Oil)
propranolol 20 mg tablet 20 mg PO TID Blood Pressure 02/17/22 06/25/23 06/25/23 History
testosterone 1 % (25 mg/2.5 gram) 1 packet transdermal DAILY 02/17/22 06/25/23 06/25/23 History
transdermal gel packet (AndroGel)
zinc acetate 50 mg (zinc) capsule 50 mg PO DAILY 02/17/22 06/25/23 06/25/23 History
aspirin 81 mg tablet,delayed 81 mg PO DAILY Blood Clot 06/25/23 06/25/23 06/25/23 16:30 History
release Prevention/Tx
tamsulosin 0.4 mg capsule 0.4 mg PO HS BPH 06/25/23 06/25/23 06/24/23 History
Review of Systems
-
Unable to Obtain full review of systems at this time due to: Other (Per HPI)
Vitals / Labs / Diagnostic Testing
Vital Signs
Temp Pulse Resp BP Pulse Ox
97.3 F 78 9 125/61 96
06/29/23 10:30 06/29/23 11:15 06/29/23 11:15 06/29/23 11:15 06/29/23 11:15
Lab Data
06/29/23 10:40
06/29/23 10:40
Laboratory Results
06/29/23 06/29/23
06:28 10:40
PT 14.0 14.6
INR 1.08 1.14
APTT 30.6 30.3
Diagnostic Testing:
Physical Exam
-
Exam:
Well-nourished and well-developed in no apparent distress
HEENT-atraumatic, normocephalic, thick neck
Neck-supple, no JVD, no bruit, right carotid surgical bandages not removed
Heart-regular rate and rhythm-no murmurs, rubs or gallops
Chest-clear to auscultation, no wheezes, crackles
Back-no tenderness
Abdomen-soft, nontender, nondistended, no hepatosplenomegaly
Extremities-no cyanosis, clubbing, edema and good peripheral pulses
Integument-intact, no rashes, lesions or ecchymosis
Neurology-alert and oriented, nonfocal motor and sensory exam
Assessment
-
72-year-old male with history of hypertension essential tremors obesity and obstructive sleep apnea who presented with new onset neurologic symptoms found to have multiple scattered subacute infarcts in the right cerebral hemisphere and underwent
right carotid endarterectomy-physical therapist center manager consulted for postoperative critical care management 06/29/2023.
Assessment
Symptomatic right carotid artery stenosis-70%
Status post right carotid endarterectomy with bovine pericardial patch angioplasty and intraoperative EEG monitoring-Dr. Santillan-06/29/2023
Recent CVA-multiple scattered small foci of acute and subacute infarcts right cerebral hemisphere
Mild hyperglycemia
Conditions present prior to admission:
Hypertension.
Hyperlipidemia.
Obstructive sleep apnea.
Obesity-BMI 38.7.
Anxiety.
Essential tremors.
Osteoarthritis.
Plan
Postoperative surgical intensive care unit monitoring
Supplemental oxygen as needed
Incentive spirometry
Aspiration precautions
Neuro and vascular checks per protocol
Vascular surgery following-correspondence and operative notes reviewed
Neurology was following-following peripherally since 06/27/2023-continue atorvastatin, clopidogrel and aspirin
DVT prophylaxis
Early nutrition
Early mobilization
The patient follows with [facility] for obstructive sleep apnea-his current machine is over 5 years old-told he is likely eligible for a new machine-instructed to follow-up with outpatient sleep specialist
Critical care statement: A total of 44 minutes of critical care time was provided for this patient today. This includes management of unstable vital signs, evaluation of the patient at bedside, reviewing the patient's pertinent medical records
including radiographs, microbiology, laboratory evaluations, and discussion with primary team, consultants, pharmacy, nutrition, physical therapy, case management, charge nurse, critical care nursing, and respiratory therapy.
Diagnostic data:
Chest x-ray 06/29/2023-small area of parenchymal opacification medial left lower lobe likely atelectasis
CT head 06/28/2023-no acute intracranial abnormalities
MRI brain 06/26/2023-multiple scattered small foci of acute and subacute infarctions right cerebral hemisphere, no evidence for associated mass affect or hemorrhage
Echocardiogram 06/26/2023-EF 55-60%, moderate left ventricular hypertrophy, no significant valvular disease
Lexiscan stress test 06/28/2023-no chest pain, no EKG changes, EF 52%, low risk study
Data Reviewed
-
EKG: Report reviewed by me
Radiology: Report reviewed by me
CT Scan: Report reviewed by me
Medical Tests (Nuc Med, Echo etc): Report reviewed by me
Labs: Labs reviewed by me
Old Records: Reviewed
Critical Care Time (in minutes): 44
[2023-06-29 11:27] LABS: Mean Platelet Volume 10.8 fL (7.4-10.4); Platelet Count 128 10^3/uL (130-400)
[2023-06-29] MEDS: NSS 1000 IV ×2 (11:32→23:07)
--- NOTE | 2023-06-29 11:47 | W.PN.CD ---
Addendum entered and electronically signed by Ricky Davidson MD 06/29/23 14:08:
I saw and examined the patient.
The HOUSE WORKER GENERAL's note was reviewed and I agree with the note.
Comment: He is feeling well without complaint. No complaint of cp or sob after surgery. Rt CEA incision site cdi. No acute cardiac issues. Continue agressive 2/2 prevention--high dose statin, antiplt as per nuero and bp control.
I will sign off, no indication for routine cardiac follow up.
Original Note:
Today's Communication / Plan
-
Close post-op monitoring
Follow telemetry
Monitor BP's
Impression / Plan
-
Cardiac risk assessment for CEA
-No history of AR, heart failure, nor renal disease
-Some shortness of breath while walking up a hill, chest pain free
-TTE without acute findings
-nuclear stress test shows no evidence of ischemia
-patient now s/p procedure as below�
Carotid stenosis, right:
-now s/p right carotid endarterectomy with Dr. Santillan
-continue ASA, Plavix, statin per vascular
CVA, neurology following
HTN, BP goals per Neurology
ANNA
Essential tremor, on propranolol as outpatient
Subjective:
Seems to be doing well post-op. No CP or SOB.
Physical Exam
Vital Signs/Labs
Vital Signs
Temp Pulse Resp BP Pulse Ox
97.3 F 78 9 125/61 90
06/29/23 10:30 06/29/23 11:15 06/29/23 11:15 06/29/23 11:15 06/29/23 11:15
06/29/23 10:40
06/29/23 10:40
PT 14.6 Sec (11.4-14.6) 06/29/23 10:40
INR 1.14 06/29/23 10:40
APTT 30.3 Sec (23.4-35.0) 06/29/23 10:40
Magnesium 2.2 mg/dl (1.6-2.3) 06/25/23 17:53
Triglycerides 130 mg/dl (10-149) 06/26/23 07:05
LDL Cholesterol, Calc 116 mg/dl 06/26/23 07:05
VLDL Cholesterol, Calc 26 mg/dl (0-30) 06/26/23 07:05
HDL Cholesterol 50 mg/dl 06/26/23 07:05
TSH 1.63 uIU/ml (0.47-4.68) 06/25/23 17:53
Physical Exam
Constitutional: No acute distress
EENT: Anicteric
Cardiovascular: Rhythm & rate is regular
Respiratory: Respiratory effort normal and Lungs clear to auscul.
GI: Soft, Non tender and Normal bowel sounds
Neuro/Psych: AO x 3
Other: Skin (warm and dry) and Other (right neck incision without redness, drainage, swelling)
Data Reviewed
-
Date of Service: June 29, 2023
--- NOTE | 2023-06-29 12:27 | SUR.PHASEI ---
patient received in pacu - unable to hand grasp on left, able to hold left arm up and no other neuro deficit. during stay in pacu - hand grasp improved on left; although not the strength of right. cannot extend fingers straight on left - per
patient that has been consistent since admission. neurology and vascular visit in pacu. aware of assess and also improvement in pacu time. vss. suly consistent with cuff pressures. medicated x1 for right neck pain and jaw pain with some
relief. able to sleep if undisturbed. Maite Sheehan NP -TT with lab results in pacu. Family updated during pacu time. discharge to ICCU with hand off at bedside.
[2023-06-29] MEDS: ASPIR LOW (ENTERIC COATED) PO (12:42)
[2023-06-29] MEDS: PLAVIX PO (12:43)
[2023-06-29] MEDS: VITAMIN D3 (cholecalciferol) PO (12:43)
[2023-06-29] MEDS: VITAMIN B-12 PO (12:43)
[2023-06-29] MEDS: TYLENOL 650 MG PO ×2 (13:09→20:26)
--- NOTE | 2023-06-29 15:36 | PTCARENOTE ---
Pt received from PACU s/p R CEA to ICU bed 3358 at 1200. Pt AAOx3. NIH completed on arrival. NIH 1 for LUE ataxia. Left hand grasp weak and hand slightly clumsy on assessment. All other neuro assessment WNL and remained unchanged since arrival.
Sinus rhythm. BP stable via left radial a-line.
Lungs CTA. SpO2 94% on 2L NC.
Tolerated clear liquid diet for lunch. Advanced to cholesterol lowering diet for dinner.
Voiding in urinal.
Remains on bedrest.
[2023-06-29] MEDS: LIPITOR 40 MG PO (18:09)
[2023-06-29] MEDS: ANESTHETIC LOZENGE 1 LOZENGE PO (20:26)
[2023-06-29] MEDS: FLOMAX 0.400000000000000022 MG PO (20:36)
--- NOTE | 2023-06-29 21:49 | PTCARENOTE ---
NIH of 1 done with dayshift nurse. mild left arm ataxia. pt alert and orientated x3, very pleasant, rings call de jesus appropriately, able to make needs known. tolerating room air when awake, started to desat when he fell asleep to 85%. respiratory at
bedside and placed on cpap. NS on the monitor. right neck surgical glue in place, slightly swollen, no bruising. Pt does have ice pack on the incision site. left radial a-line zeroed and transduced. remains on bedrest for the night.
[2023-06-30] VITALS (16 sets, daily range): BP systolic 118–155; BP diastolic 69–79; PULSE 68–75
--- NOTE | 2023-06-30 00:31 | PTCARENOTE ---
pt reassessed. easily arousable, alert and orientated x3. no c/o pain or discomfort. remains on cpap, tolerating well.
[2023-06-30 04:06] LABS: Hematocrit 37.9 % (39.0-52.0); Hemoglobin 12.9 g/dL (13.0-18.0); Mean Corpuscular Hgb 32.3 pg (27.0-31.0); Mean Corpuscular Volume 94.8 fL (80.0-94.0); Mean Platelet Volume 11.3 fL (7.4-10.4); Platelet Count 134 10^3/uL (130-400); Red Cell Dist. Width 13.2 % (11.5-14.5)
[2023-06-30 04:17] LABS: APTT 30.3 Sec (23.4-35.0); INR 1.03; PT 13.5 Sec (11.4-14.6)
[2023-06-30 04:28] LABS: Blood Urea Nitrogen 12 mg/dl (9-20); Calcium 8.3 mg/dl (8.4-10.2); Carbon Dioxide 23 mmol/L (22-30); Chloride 104 mmol/L (98-107); Estimated Creatinine Clearance 111 ml/min; Glucose 126 mg/dl (70-99); Potassium 4.2 mmol/L (3.5-5.1); Sodium 137 mmol/L (135-145); eGFR > 60.00
--- NOTE | 2023-06-30 05:56 | PTCARENOTE ---
pt reassessed, assessment remains unchanged. NIH remains a 1 for left hand ataxia. tolerated cpap
--- NOTE | 2023-06-30 06:31 | W.PN.HOSP.TC ---
Today's Communication/Plan
-
.
Assessment / Plan
Assessment / Plan
Physical Exam
-
General: Well Developed and No Apparent Distress
HEENT: Normocephalic, Atraumatic, Moist Mucous Membranes.
Respiratory: Clear to Auscultation
Cardiac: Regular Rhythm and S1/S2; Negative Murmur, Rub or Gallop
GI: Soft, Nontender, Nondistended and Normal Bowel Sounds.
Rectal: No rectal bleeding noted.
Musculoskeletal: No Clubbing, No Cyanosis and No Edema
Skin: Negative Rash
Neuro: Awake, Alert, Oriented, AO x 3. no new deficits noted.
Psych: Calm
#�Multiple scattered small foci of acute to subacute infarction in the right cerebral hemisphere
He presented with left upper extremity weakness. Weakness seemed to wax and wane at times and sometimes related to low Bp.
Started on dual anti-platelets therapy & Statin for now.
-LDL 116. HDL 50. Triglyceride 130. Total cholesterol 192
Echo of the heart showed normal biventricular size and function. Left ventricular ejection fraction of �55-60%. Moderate left ventricular hypertrophy. No significant valvular disease.
Cardiac nuclear test showed no ischemia
- Appreciate neurology input
# Right carotid stenosis s/p Right carotid endarterectomy�by Dr. Santillan on 06/29, no complications reported.
Appreciate vascular surgery help
# Mild acute blood loss anemia
continue to monitor
no rectal bleeding
#Essential tremor
-continue propranolol as as needed
#Morbid obesity BMI 38.7
# Anxiety
Added PRN Ativan
DVT proph PCSs
Full Code
Total time spent to see the patient, examine the patient on the floor, review data and lab results, discuss treatment plan with patient and nursing staff around 55 minutes
Anticipated Discharge: 24 - 48 hours
Subjective/Interval History
-
Date of Service: June 30, 2023
No chest pain
No sob
No worsening weakness in left UE
Objective Data
-
Labs:
Laboratory Results
06/30/23
03:47
WBC 10.0
Hgb 12.9 L
Hct 37.9 L
Plt Count 134
PT 13.5
INR 1.03
APTT 30.3
Sodium 137
Potassium 4.2
Chloride 104
Carbon Dioxide 23
BUN 12
Creatinine 0.8
Glucose 126 H
Calcium 8.3 L
Vital Signs:
Vital Signs
Temp Pulse Resp BP Pulse Ox
98.3 F 69 27 147/72 94
06/30/23 05:55 06/30/23 06:00 06/30/23 06:00 06/30/23 00:00 06/30/23 06:00
I&O
06/28/23 06/29/23 06/30/23
06:59 06:59 06:59
Intake Total 1360 / 1360 1560 / 1560 2094 / 2094
Output Total 675 / 675
Balance 1360 / 1360 1560 / 1560 1420 / 1420
--- NOTE | 2023-06-30 07:18 | W.PN.VS ---
Addendum entered and electronically signed by Yeyo Santillan MD 06/30/23 07:33:
Seen and examined with ELECTRIC METER READER. Agree with findings as noted below. Patient without significant complaints. Right neck incision clean dry and intact. No hematoma. Neurologically stable/improving. (Recrudescence left hand symptoms post
endarterectomy). 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 Remainder of the arm remains with good strength.
Plan/postoperative day #1 status post right carotid endarterectomy for symptomatic right carotid stenosis (infarct). Continues to improve neurologically in terms of the left hand. Discontinue arterial line, Hep-Lock IV fluids. Out of bed.
Physical therapy for her left hand. Hopefully stable for discharge likely today or tomorrow (from vascular surgical perspective) pending physical therapy needs as outpatient.
Original Note:
Today's Communication / Plan
-
Patient seen and examined at bedside with Dr. Yeyo Santillan, below plan reviewed with attending.
Assessment/Plan
-
Assessment: 72-year-old male admitted for right hemisphere stroke with left upper extremity weakness, POD #1 right carotid endarterectomy
Plan:
Discontinue arterial line
Discontinue IV fluid
OOB to chair with progression ambulation as tolerated
Continue DAPT per neurology recommendations
Continue statin
Patient with vascular surgery follow-up and discharge instructions
If patient continues to progress well; tolerating diet, ambulation, and remains normotensive cleared from a vascular surgical standpoint for discharge later this afternoon.
Subjective Data
-
Date of Service: June 30, 2023
Patient seen at bedside, offers no complaints. Reports continued improvement in left hand weakness, he is now at baseline motor function following his stroke and prior to OR. Denies nausea, vomiting, fever, and chills. Denies headache. Reports
adequate postoperative pain management.
Objective Data
-
Vital Signs
Temp Pulse Resp BP Pulse Ox
98.3 F 77 15 147/72 97
06/30/23 05:55 06/30/23 06:30 06/30/23 06:30 06/30/23 00:00 06/30/23 06:30
Intake and Output
06/29/23 06/30/23 07/01/23
06:59 06:59 06:59
Intake Total 1560 / 1560 2095 / 2095
Output Total 675 / 675
Balance 1560 / 1560 1420 / 1420
Intake:
Oral fluids 1560 / 1560 510 / 510
IV fluids (Total) 1585 / 1585
Nss 1,000 ml @ 80 mls/hr IV . 1360 / 1360
[id number] BALA Rx#:[id number]
nss 225 / 225
Output:
Urine, Voided 675 / 675
Other:
Number of approximated MODERATE 3
amounts of urine
Number of approximated LARGE 7
amounts of urine
Lab Results
06/30/23 03:47
06/30/23 03:47
Calcium 8.3 mg/dl (8.4-10.2) L 06/30/23 03:47
Magnesium 2.0 mg/dl (1.6-2.3) 06/29/23 10:40
Total Bilirubin 0.5 mg/dl (0.2-1.3) 06/25/23 17:53
AST 26 U/L (17-59) 06/25/23 17:53
ALT 25 U/L (0-50) 06/25/23 17:53
Alkaline Phosphatase 60 U/L (38-126) 06/25/23 17:53
Total Protein 6.4 g/dl (6.3-8.2) 06/25/23 17:53
Albumin 4.0 g/dl (3.5-5.0) 06/25/23 17:53
Physical Exam
-
AAOx3, NAD
Right neck surgical site CDI, no evidence of hematoma, facial symmetry
No tachycardia
No tachypnea
ABD rotund, nondistended
Left upper extremity with mild ataxia, drift, and motor weakness of left hand
--- NOTE | 2023-06-30 07:47 | W.PN.INTV ---
Today's Communication / Plan
Recommendations
Neurovascularly intact
Wean oxygen
Incentive spirometry
Discontinue arterial line
Increase activity
Physical therapy for left hand
Stable for transfer out of ICU-call pulmonary if respiratory issues arise
Assessment
-
72-year-old male with history of hypertension essential tremors obesity and obstructive sleep apnea who presented with new onset neurologic symptoms found to have multiple scattered subacute infarcts in the right cerebral hemisphere and underwent
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
Assessment
Symptomatic right carotid artery stenosis-70%
Status post right carotid endarterectomy with bovine pericardial patch angioplasty and intraoperative EEG monitoring-Dr. Santillan-06/29/2023
Recent CVA-multiple scattered small foci of acute and subacute infarcts right cerebral hemisphere
Mild hyperglycemia
Conditions present prior to admission:
Hypertension.
Hyperlipidemia.
Obstructive sleep apnea.
Obesity-BMI 38.7.
Anxiety.
Essential tremors.
Osteoarthritis.
Plan
Hemodynamically and neurovascularly intact
Wean supplemental oxygen
Incentive spirometry encourage
Aspiration precautions
Monitor hemoglobin
Transfuse if needed
Monitor blood sugars
Insulin supplementation if needed
Neuro and vascular checks per protocol also continue
Vascular surgery closely
DVT prophylaxis recommended
Nutrition
Increase activity/physical therapy
The patient follows with [facility] for obstructive sleep apnea-his current machine is over 5 years old-told he is likely eligible for a new machine-instructed to follow-up with outpatient sleep specialist
Patient can be transferred out of ICU-call pulmonary if respiratory issues arise
Reviewed the patient's pertinent medical records including radiographs, microbiology, laboratory evaluations, and discussion with primary team, consultants, pharmacy, nutrition, physical therapy, case management, charge nurse, critical care
nursing, and respiratory therapy.
Diagnostic data:
Chest x-ray 06/29/2023-small area of parenchymal opacification medial left lower lobe likely atelectasis
CT head 06/28/2023-no acute intracranial abnormalities
MRI brain 06/26/2023-multiple scattered small foci of acute and subacute infarctions right cerebral hemisphere, no evidence for associated mass affect or hemorrhage
Echocardiogram 06/26/2023-EF 55-60%, moderate left ventricular hypertrophy, no significant valvular disease
Lexiscan stress test 06/28/2023-no chest pain, no EKG changes, EF 52%, low risk study
Subjective Dataa
Subjective Data
Date of Service:
Date of Service: June 30, 2023
Chief Complaint: Machine Stonecutter Follow Up and Pulmonary Follow Up
Subjective:
Left hand weakness much improved, no new neurologic symptoms, no dysarthria, swallowing difficulties, new weakness, no complaints of shortness of breath, chest pain or abdominal pain, tolerating CPAP
Review of Systems
General: Other (Per HPI)
Objective Data
Data Reviewed
Vital Signs / I&O / Oxygen:
Vital Signs
Temp Pulse Resp BP Pulse Ox
98.3 F 77 15 147/72 97
06/30/23 05:55 06/30/23 06:30 06/30/23 06:30 06/30/23 00:00 06/30/23 06:30
Intake and Output
06/29/23 06/30/23 07/01/23
06:59 06:59 06:59
Intake Total 1560 / 1560 2094
Output Total 675 / 675
Balance 1560 / 1560 1420 / 1420
SaO2 97
Nasal Cannula flow liters per 2
minute
Physical Exam
General: Respiratory Distress (n) and Comfortable
HEENT: Normocephalic, Anicteric and Moist Mucous Membranes
Cardiovascular: Regular Rhythm
Respiratory: Crackles (n), Rhonchi (n), Non-Labored Respirations, Accessory Resp Muscle Use (n) and Stridor (n)
GI: Soft, Non Distended and Non Tender
Neurology: Awake, Alert and No Motor Deficits (Except left upper extremity hand weakness)
Skin: Warm, Good Color, Cyanosis (n), Jaundice (nn) and Rash (n)
Labs/Micro/Reports
Lab Data
06/30/23 03:47
06/30/23 03:47
Laboratory Results
06/29/23 06/29/23 06/30/23
06:28 10:40 03:47
PT 14.0 14.6 13.5
INR 1.08 1.14 1.03
APTT 30.6 30.3 30.3
[2023-06-30] MEDS: VITAMIN B-12 2500 MCG PO (08:32)
[2023-06-30] MEDS: ASPIR LOW (ENTERIC COATED) 81 MG PO (08:32)
[2023-06-30] MEDS: VITAMIN D3 (cholecalciferol) 25 MCG PO (08:32)
[2023-06-30] MEDS: PLAVIX 75 MG PO (08:32)
--- NOTE | 2023-06-30 09:15 | PTCARENOTE ---
Rec'd pt at 0800 awake alert and oriented resting in bed. States he feels pretty good. Denies headache or dizziness. Speech is clear. Smile even. Tongue is midline. PELAYO. Has R hand tremors that pt states is chronic mostly with activity. Able to move
L arm up without drift but still has limited flexion and extension of the L hand but overall pt states it is better than yesterday. 5th finger on the L hand still with the least amt of extension. Pt can grasp with the L hand but is weaker than the
R. Denies distinct numbness but some soreness at the L hand IV site more than anything. Skin is pink wm and dry. R neck incision is approximated with surgical adhesive present. Does have ecchymosis and soft swelling at site- Vascular surgery in this
am and aware. No drainage. Ice pack for 20 min q2hrs to site. Respirs are unlabored on RA. Sats 97%. BS decreased at the bases. Monitor SR. + pulses. DP pulses sl weak. Tr pedal and L hand edema. VS as documented. L radial suly site wnl. Congurent
with cuff. Good cms check to distal extremity. A line dc'd at 0850 per md order. Pressure held over the site-no hematoma. Abd is soft with + BS. Good appetite for breakfast. Voiding yellow urine in the urinal. L medial hand IV site wnl NSS at 80
mls/hr infusing initally and capped currently. Capped int #18 dc'd from top of L hand due to soreness. Site wnl. Currently Pt assisted oob to the chair- gait is overall steady. in to see pt and pt currently resting oob in the chair. Call de jesus
in reach. Will monitor closely.
--- NOTE | 2023-06-30 10:30 | PTCARENOTE ---
Remains sitting oob in the chair. No complaints. Dr. Malave updated about Propanolol which pt takes at home for R hand tremors. Will continue to hold per md. Family in visiting. No changes.
--- NOTE | 2023-06-30 12:29 | CM ---
CM following re: discharge planning.
Discussed in Rounds, reviewed pt's chart, met with pt. Pt's spouse and pt's daughter at bedside. Per Rounds meeting pt will be downgraded from ICU level of care.
per vascular surgery, pt most likely will be discharged later this afternoon. Pt stated he feels he needs to stay extra night to make sure everything is OK. IMM reviewed, placed on chart, pt has a copy.
PT and OT evaluations noted - outpatient PT/OT recommended. Pt is aware, expressed his agreement and he stated he was going to [place] outpatient therapy in [facility] prior to admission to the hospital and pt stated he will resume outpatient
PT/OT upon the discharge.
Please provide a script for outpatient PT/OT.
D/C plan: home with outpatient PT/OT at [place] outpatient therapy center in [facility] and family support. Spouse to transport at discharge.
--- NOTE | 2023-06-30 14:59 | PTCARENOTE ---
pt telemetry status, pt to transfer to room 2107 report given to receiving RN , pt walked length of hallway without difficulty , pt family here and aware of transfer , R Neck incision , ecchymotic
--- NOTE | 2023-06-30 15:52 | PTCARENOTE ---
Patient received from ICU in wheelchair, patient ambulated into room with RN; Family at bedside; Endarterectomy site assessed - ecchymosis and +1 edema noted, vascular team is aware per RETINA SUBSPECIALIST; Vascular BUSINESS CONTINUITY STRATEGY DIRECTOR came to bedside to see patient; NIH
completed; Patient assessed; Patient and family oriented to room and call de jesus use; Bed in lowest position and wheels locked
[2023-06-30] MEDS: LIPITOR 40 MG PO (17:10)
[2023-06-30] MEDS: FLOMAX 0.400000000000000022 MG PO (21:39)
[2023-06-30] MEDS: TUMS 1 TABLET PO (21:39)
[2023-07-01 03:00] VITALS: BP 116/60
--- NOTE | 2023-07-01 07:22 | W.PN.VS ---
Today's Communication / Plan
-
See plan below for today 07/01/2023.
Assessment/Plan
-
Assessment: 72-year-old male admitted for right hemisphere stroke with left upper extremity weakness, POD #2 right carotid endarterectomy
Plan:
Okay for discharge from vascular surgery perspective. Continue physical therapy for left hand status post CVA. Follow-up in office in 2 weeks.
-
Total Time Spent with Patient (in minutes): 10
Subjective Data
-
Date of Service: July 01, 2023
Patient without any complaints this morning.
Objective Data
-
Vital Signs
Temp Pulse Resp BP Pulse Ox
98.4 F 69 16 116/60 97
07/01/23 03:00 07/01/23 03:00 07/01/23 03:00 07/01/23 03:00 07/01/23 03:00
Intake and Output
06/30/23 07/01/23 07/02/23
06:59 06:59 06:59
Intake Total 2095 / 2175 1120 / 1120
Output Total 675 / 1075 900 / 900
Balance 1420 / 1100 220 / 220
Intake:
Oral fluids 510 / 510 880 / 880
IV fluids (Total) 1585 / 1665 240 / 240
Nss 1,000 ml @ 80 mls/hr IV . 1360 / 1440 240 / 240
[id number] BALA Rx#:[id number]
nss 225 / 225
Output:
Urine, Espinoza 400 / 400
Urine, Voided 675 / 675 500 / 500
Other:
Number of approximated MODERATE 3
amounts of urine
Lab Results
06/30/23 03:47
06/30/23 03:47
Calcium 8.3 mg/dl (8.4-10.2) L 06/30/23 03:47
Magnesium 2.0 mg/dl (1.6-2.3) 06/29/23 10:40
Total Bilirubin 0.5 mg/dl (0.2-1.3) 06/25/23 17:53
AST 26 U/L (17-59) 06/25/23 17:53
ALT 25 U/L (0-50) 06/25/23 17:53
Alkaline Phosphatase 60 U/L (38-126) 06/25/23 17:53
Total Protein 6.4 g/dl (6.3-8.2) 06/25/23 17:53
Albumin 4.0 g/dl (3.5-5.0) 06/25/23 17:53
Physical Exam
-
Afebrile.
Awake and alert.
Right neck incision is clean dry and intact, no hematoma.
Neurologically stable/slightly improving. Moves all extremities. Left hand improving function overall. 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 First 2 fingers flexion and extension of the fingers good. Third through fifth fingers flexion reasonable, extension
still slightly weak.
Tongue midline.
[2023-07-01 07:30] VITALS: BP 119/79
--- NOTE | 2023-07-01 07:53 | W.DCSUMMARY ---
Discharge Summary
Discharge Data
Date of Admission: 06/27/23
Date of Discharge: 07/01/23
-
Pending Results: No
Hospital Course
72 years old male presented with left-sided upper extremity weakness. Patient was admitted to rule out stroke. He was started on dual antiplatelet therapy with statin. Head scan did not show acute finding. Magnetic resonance imaging of the brain
showed multiple scattered small foci of acute to subacute infarction in the right cerebral hemisphere. Patient was followed by neurologist. Echocardiogram of the heart showed normal biventricular size and function. Left ventricular ejection
fraction 55 to 60%. Moderate left ventricular hypertrophy with no significant valvular disease. Scan of the head and neck angiogram showed right carotid stenosis. Patient was evaluated by vascular surgery. Patient had pre-operative cardiac
evaluation. He underwent cardiac nuclear stress test that did not show evidence of ischemia. Patient underwent right carotid enterectomy by Dr. Santillan on 06/29/23. No complications reported. Patient tolerated procedure well. He did not have new
neurological deficits. His left upper extremity weakness started to improve. Neurology recommended dual antiplatelet therapy for 21 days then aspirin afterward. Patient was counseled regarding healthy lifestyle decisions including weight loss.
He verbalized understanding. He did not need new blood pressure medication. His blood pressure on discharge was 119/79 without using propranolol. Patient used propranolol at home mainly for essential tremor. Patient was advised to follow-up with
his primary care doctor. He will need to see vascular surgery in 2 weeks and he will need to follow-up with neurology in 1 month. He was evaluated by physical therapy and recommended outpatient physical therapy. He remained hemodynamically
stable and was discharged in a stable condition.
Physical Exam
-
General: Well Developed and No Apparent Distress
HEENT: Normocephalic, Atraumatic, Moist Mucous Membranes. Right sided of neck mild swelling and bruising noted, clean sutures.
Respiratory: Clear to Auscultation
Cardiac: Regular Rhythm and S1/S2; Negative Murmur, Rub or Gallop
GI: Soft, Nontender, Nondistended and Normal Bowel Sounds.
Rectal: No rectal bleeding noted.
Musculoskeletal: No Clubbing, No Cyanosis and No Edema
Skin: Negative Rash
Neuro: Awake, Alert, Oriented, AO x 3. no new deficits noted.
Psych: Calm
Total discharge time spent to see the patient, examine the patient on the floor, review data and lab results, discuss discharge plan with patient, consultants, and nursing staff around 65 minutes.
Discharge Plan
-
Patient Disposition: Home (Routine Discharge)
Discharge Diagnosis/Procedures: right hemisphere stroke with left upper extremity weakness status post neurology evaluation, dual anti-platelets therapy, statin therapy and right carotid endarterectomy By Dr. Santillan on 06/29/23.
Continue with aspirin and Plavix for 21 days then continue with aspirin only. Continue with Lipitor. Lipitor is a cholesterol-lowering medicine, potential side effects include myopathy, elevated liver enzymes.
Take Pepcid for heartburn.
Monitor your blood pressure and follow-up with your primary care doctor.
Diet: As tolerated, Low Fat and Low Cholesterol
Activity: No strenuous activity
Driving Restrictions: Not until seen by your Dr
Activity Restrictions/Additional Instructions:
If you experience severe constant headache, weakness to an arm or leg, change in vision, trouble speaking or any stroke-like symptom, call 911 immediately
If you experience swelling, increased bruising, drainage from neck site, or fever, please call the office
Stand Alone Forms: DC Instr - Vascular OR
Referrals:
Khanh Castro MD [Active] - in one month
Manju Rene PA-C [Specified Professional Personl] - 07/12/23 9:30 am
Armani Gonzalez MD [Family Provider] - in one to two weeks
Prescriptions:
New
atorvastatin 40 mg Tablet
40 mg PO QPM Qty: 30 0RF
clopidogrel 75 mg Tablet
75 mg PO DAILY Qty: 21 0RF
famotidine [Pepcid] 20 mg tablet
20 mg PO DAILY Qty: 30 0RF
aspirin 81 mg Tablet,Delayed Release (Dr/Ec)
81 mg PO DAILY Qty: 30 0RF
Continued
zinc acetate 50 mg (zinc) Capsule
50 mg PO DAILY
testosterone [AndroGel] 1 % (25 mg/2.5gram) Gel In Packet
1 packet TRANSDERMAL DAILY
fluticasone propionate [Flonase Allergy Relief] 50 mcg/actuation [place],Suspension
2 spray INTRANASAL DAILY
loratadine [Claritin] 10 mg Tablet
10 mg PO DAILY
cholecalciferol (vitamin D3) [Vitamin D3] 25 mcg (1,000 unit) Capsule
25 mcg PO DAILY
Multivitamin 50 Plus Tablet
1 tab PO .3X WEEKLY
omega 3-ize-lbq-fish oil [Fish Oil] 1,000 mg (120 mg-180 mg) Capsule
1 cap PO DAILY
Hold Instructions: hold x 1 week
cyanocobalamin (vitamin B-12) 2,500 mcg Tablet
2,500 mcg PO DAILY
magnesium citrate 125 mg Capsule
250 mg PO DAILY
Glucosamine Chondroitin 550-30-1 mg Capsule
1 cap PO DAILY
Hold Instructions: HOLD X 1 WEEK
tamsulosin 0.4 mg capsule
0.4 mg PO HS
Changed
propranolol 20 mg Tablet
20 mg PO BID Qty: 0 0RF
Discontinued
aspirin 81 mg Tablet,Delayed Release (Dr/Ec)
81 mg PO DAILY
Patient Comments:
06/25/2023: Pt took a 2nd dose today
Discharge Orders:
Discharge Patient (As Directed); Ordered 07/01/23
Ordered By: Ro Malave
[2023-07-01] MEDS: ASPIR LOW (ENTERIC COATED) 81 MG PO (08:14)
[2023-07-01] MEDS: VITAMIN B-12 2500 MCG PO (08:14)
[2023-07-01] MEDS: PLAVIX 75 MG PO (08:18)
[2023-07-01] MEDS: VITAMIN D3 (cholecalciferol) 25 MCG PO (08:18)
--- NOTE | 2023-07-01 09:40 | CM ---
CM following re: discharge planning.
Reviewed pt's chart, met with pt and pt's spouse at bedside.
Discharge order noted. Pt is aware, expressed his agreement with discharge. IMM reviewed yesterday. Pt's spouse stated she is here to transport her home.
A script for outpatient PT/OT is in the chart and will be given to the pt.
D/C plan: home with outpatient PT/OT at [facility] outpatient therapy and family support. Spouse to transport.
No other discharge needs identified.
== END 2023-07-01 10:26 | disposition home or self-care (01) | DRG 38 ==
LOC: 2 SOUTH 09:17
PROVIDERS: Nurse Practitioner; ADMITTING PHYSICIAN Internal Medicine; ATTENDING PHYSICIAN Internal Medicine; CONSULT PHYSICIAN Internal Medicine; CONSULT PHYSICIAN Internal Medicine Critical Care Medicine; CONSULT PHYSICIAN Student in an Organized Health Care Education/Training Program; CONSULT PHYSICIAN Surgery Vascular Surgery; EMERGENCY PHYSICIAN Student in an Organized Health Care Education/Training Program; FAMILY PHYSICIAN Family Medicine
PROC: 5A09357 Assistance with Respiratory Ventilation, Less than 24 Consecutive Hours, Continuous Positive Airway Pressure (ICD-10-PCS; 2023-06-25)
PROC: 4A02XM4 Measurement of Cardiac Total Activity, External Approach (ICD-10-PCS; 2023-06-28)
PROC: 3E033HZ Introduction of Radioactive Substance into Peripheral Vein, Percutaneous Approach (ICD-10-PCS; 2023-06-28)
PROC: 03CM0ZZ Extirpation of Matter from Right External Carotid Artery, Open Approach (ICD-10-PCS; 2023-06-29)
PROC: 03CH0ZZ Extirpation of Matter from Right Common Carotid Artery, Open Approach (ICD-10-PCS; 2023-06-29)
PROC: 03CK0ZZ Extirpation of Matter from Right Internal Carotid Artery, Open Approach (ICD-10-PCS; 2023-06-29)
PROC: 03UM0KZ Supplement Right External Carotid Artery with Nonautologous Tissue Substitute, Open Approach (ICD-10-PCS; 2023-06-29)
DX: I63.231 Cerebral infarction due to unspecified occlusion or stenosis of right carotid arteries (principal); D62 Acute posthemorrhagic anemia; G47.33 Obstructive sleep apnea (adult) (pediatric); G25.0 Essential tremor; I10 Essential (primary) hypertension; E66.01 Morbid (severe) obesity due to excess calories; I25.10 Atherosclerotic heart disease of native coronary artery without angina pectoris; M17.12 Unilateral primary osteoarthritis, left knee; F41.9 Anxiety disorder, unspecified; E78.00 Pure hypercholesterolemia, unspecified; R73.9 Hyperglycemia, unspecified; I69.334 Monoplegia of upper limb following cerebral infarction affecting left non-dominant side; Z68.34 Body mass index [BMI] 34.0-34.9, adult; Z79.82 Long term (current) use of aspirin; Z79.899 Other long term (current) drug therapy
CPT/HCPCS: 88304; 88311; 35301; 70450; 70496; 70498; 70544; 70548; 70551; 71045; 78452; 80048; 80053; 80061; 82962; 83735; 84443; 84484; 85025; 85027; 85610; 85652; 85730; 86803; 86850; 86900; 86901; 93005; 93017; 93306; 93880; 94660; 96360; 97116; 97129; 97162; 97166; 97530; 97535; 99291; A9500; A9585; J2785; Q9967

== ENCOUNTER → 2023-08-08 12:58 | Outpatient (REF) | payer MEDICARE, OTHER, SELFPAY | LOC: RAD 12:58 | PROVIDERS: ATTENDING PHYSICIAN Physician Assistant; FAMILY PHYSICIAN Family Medicine | DX: I65.23 Occlusion and stenosis of bilateral carotid arteries (principal) | CPT/HCPCS: 93880 ==

== ENCOUNTER → 2024-02-13 11:01 | Outpatient (REF) | payer MEDICARE, OTHER, SELFPAY | LOC: RAD 11:01 | PROVIDERS: ATTENDING PHYSICIAN Surgery Vascular Surgery; FAMILY PHYSICIAN Family Medicine | DX: I65.29 Occlusion and stenosis of unspecified carotid artery (principal); I65.21 Occlusion and stenosis of right carotid artery | CPT/HCPCS: 93880 ==

== ENCOUNTER 2024-07-07 11:45 | Emergency (ER) | payer MEDICARE, OTHER, SELFPAY ==
[2024-07-07 11:50] VITALS: BP 157/95
--- NOTE | 2024-07-07 15:08 | ED.GENMED ---
History of Present Illness
General
Chief Complaint: Musculo-Skeletal Complaint
Time Seen by Provider: 07/07/24 12:35
History of Present Illness
History of Present Illness:
73-year-old male presents to the emergency department for evaluation of persistent left hip and right upper leg pain ongoing for the past several days, worsening in the past week. He is able to ambulate with significant discomfort. [place] a pop to
the area when getting out of the car earlier today. No low back pain
Past History
Past History
ED Past Medical History: CVA (June 2023 acute ischemic stroke in the right MCA territory including the right occipital lobe, right basal ganglia, and right frontal and parietal cortex), HTN and Hypercholesterolemia
Review of Systems
Review of Systems
Allergies reviewed?: Yes
All Other Systems: ROS reviewed and negative except as documented in HPI and ROS
Phy Exam
Physical Exam
Physical Exam:
GEN: Well appearing, NAD, WDWN
HEENT: Oral mucosa moist, no scleral icterus
Cardiac: Regular rate
Lung: No respiratory distress, no tachypnea
MSK: No gross deformity or injuries. Left hip range of motion normal however pain elicited with internal rotation. Able to perform straight leg raise. No left knee effusion
Skin: Good color, no pallor or jaundice, no rashes
Neuro: AO x3, moves all extremities freely
Psych: Calm, cooperative
Course
Orders/Labs/Results
Orders:
Orders
07/07/24 12:50
CR Hip - LT w/wo Pel 2-3 Vw* Urgent
Comment:
Reason For Exam: L hip pain
Include a pelvis x-ray?: Yes
Vital Signs
Initial and Last Documented VS:
Initial Vital Signs
Pulse Resp Pulse Ox
66 18 96
07/07/24 11:49 07/07/24 11:49 07/07/24 11:49
Last Documented Vital Signs
Temp Pulse Resp BP Pulse Ox
98.2 F 66 18 157/95 96
07/07/24 11:50 07/07/24 11:49 07/07/24 11:49 07/07/24 11:50 07/07/24 11:49
MDM/Problems Addressed
MDM/Problems Addressed:
X-rays without any gross abnormalities. Likely arthritis of the hip, doubt lumbar radiculopathy. Would be hesitant to prescribe this patient a Lepe 2 inhibitor for pain relief given his relatively recent CVA thus will recommend ibuprofen alone,
advised him to discontinue the steroids as these are unlikely to provide any clinical benefit. Orthopedic follow-up advised
*Critical Care Note
Total Time (30-74mins, 75-104mins- exclusive of procedures): Not Applicable
ED Attending Note
-
Portions of this chart may have been created with voice recognition software.� Occasional wrong word or��sound alike� substitutions may have occurred due to the inherent limitations of voice recognition software.
Discharge Plan
Departure
Patient Disposition: Home (Routine Discharge)
Date of Disposition: 07/07/24
Time of Disposition: 15:08
Patient with high blood pressure during this ER visit?: No
Discharge Problem:
Acute pain of left hip
Instructions: Hip Pain ED
Prescriptions:
New
oxycodone-acetaminophen [Percocet] 5-325 mg tablet
1 tab PO Q6HPRN PRN (Reason: pain) Qty: 10 0RF
No Action
zinc acetate 50 mg (zinc) Capsule
50 mg PO DAILY
testosterone [AndroGel] 1 % (25 mg/2.5gram) Gel In Packet
1 packet TRANSDERMAL DAILY
fluticasone propionate [Flonase Allergy Relief] 50 mcg/actuation [place],Suspension
2 spray INTRANASAL DAILY
loratadine [Claritin] 10 mg Tablet
10 mg PO DAILY
cholecalciferol (vitamin D3) [Vitamin D3] 25 mcg (1,000 unit) Capsule
25 mcg PO DAILY
Multivitamin 50 Plus Tablet
1 tab PO .3X WEEKLY
omega 4-jyj-vqh-fish oil [Fish Oil] 1,000 mg (120 mg-180 mg) Capsule
1 cap PO DAILY
cyanocobalamin (vitamin B-12) 2,500 mcg Tablet
2,500 mcg PO DAILY
magnesium citrate 125 mg Capsule
250 mg PO DAILY
Glucosamine Chondroitin 550-30-1 mg Capsule
1 cap PO DAILY
tamsulosin 0.4 mg capsule
0.4 mg PO HS
aspirin 81 mg Tablet,Delayed Release (Dr/Ec)
81 mg PO DAILY Qty: 30 0RF
atorvastatin 40 mg Tablet
40 mg PO QPM Qty: 30 0RF
clopidogrel 75 mg Tablet
75 mg PO DAILY Qty: 21 0RF
famotidine [Pepcid] 20 mg tablet
20 mg PO DAILY Qty: 30 0RF
propranolol 20 mg Tablet
20 mg PO BID Qty: 0 0RF
Referrals:
Armani Gonzalez MD [Family Provider] -
Noel Aceves MD [Active] -
Interventions
Interventions:
*Risk Screen - Suicide Last Done: 07/07/24 11:56
*Neglect/Abuse Screening Last Done: 07/07/24 11:56
ED-Musculoskeletal Assessment Last Done: 07/07/24 11:56
Discharge Date and Time
Print Language: ESTONIAN
[2024-07-07 15:52] VITALS: BP 148/86
== END 2024-07-07 15:55 | disposition home or self-care (01) ==
LOC: EMR 11:45
PROVIDERS: EMERGENCY PHYSICIAN Emergency Medicine; FAMILY PHYSICIAN Family Medicine
DX: M25.552 Pain in left hip (principal); I10 Essential (primary) hypertension; E78.00 Pure hypercholesterolemia, unspecified; Z86.73 Personal history of transient ischemic attack (TIA), and cerebral infarction without residual deficits
CPT/HCPCS: 99283; 73502

== ENCOUNTER → 2024-07-19 11:34 | Outpatient (REF) | payer MEDICARE, OTHER, SELFPAY | LOC: MRI 3T 11:34 | PROVIDERS: ATTENDING PHYSICIAN Physician Assistant Surgical; FAMILY PHYSICIAN Family Medicine | DX: M54.16 Radiculopathy, lumbar region (principal) | CPT/HCPCS: 72148 ==

== ENCOUNTER → 2024-08-27 11:24 | Outpatient (REF) | payer MEDICARE, OTHER, SELFPAY | LOC: RAD 11:24 | PROVIDERS: ATTENDING PHYSICIAN Surgery Vascular Surgery; FAMILY PHYSICIAN Family Medicine | DX: I65.23 Occlusion and stenosis of bilateral carotid arteries (principal) | CPT/HCPCS: 93880 ==

== ENCOUNTER → 2025-02-25 14:33 | Outpatient (REF) | payer MEDICARE, OTHER, SELFPAY | LOC: RAD 14:33 | PROVIDERS: ATTENDING PHYSICIAN Surgery Vascular Surgery; FAMILY PHYSICIAN Family Medicine | DX: I65.29 Occlusion and stenosis of unspecified carotid artery (principal); I65.23 Occlusion and stenosis of bilateral carotid arteries | CPT/HCPCS: 93880 ==